=== PATIENT | male | born 1955 | race Hispanic/Latino ===

== ENCOUNTER 2019-02-02 13:12 | Inpatient (IN) | payer SELFPAY ==
[2019-02-02 13:43] LABS: #Basophils 0.1 thou/uL (0.0-0.2); #Eosinphils 0.5 thou/uL (0.0-0.7); #Lymphocytes 2.2 thou/uL (1.20-3.40); #Monocytes 0.6 thou/uL (0.11-0.59); #Neutrophils 5.3 thou/uL (1.40-6.50); %Basophils 1.1 % (0.0-1.0); %Eosinophils 5.8 % (0.0-10.0); %Lymphocytes 25.1 % (21.0-51.0); %Monocytes 6.8 % (0.0-10.0); %Neutrophils 61.1 % (42.0-75.0); Hemoglobin 17.1 g/dL (14.0-18.0); Mean Corpuscular HGB CONC 34.3 g/dL (32.0-36.0); Mean Corpuscular Hemoglobin 32.6 pg (27.0-31.0); Mean Platelet Volume 7.6 fL (7.4-10.4); Platelet Count 242 thou/uL (130-400); RBC Distribution Width 12.2 % (11.5-14.5); Red Blood Cell (RBC) Count 5.26 mill/uL (4.70-6.10); White Blood Cell (WBC) Count 8.6 thou/uL (4.8-10.8)
--- NOTE | 2019-02-02 13:47 | RAD ---
SINGLE VIEW OF THE CHEST: COMPARISON: None. HISTORY: Chest pain. FINDINGS: Single view of the chest shows a normal sized cardiomediastinal silhouette. There is no evidence of c onsolidation, mass, or pleural effusion. The bones are unremarkable. IMPRESSION: No evidence of acute cardiopulmonary disease. POS: CET
[2019-02-02 14:09] LABS: ALT (SGPT) 20 U/L (8-55); AST (SGOT) 20 U/L (5-34); Albumin 4.2 g/dL (3.4-4.8); Alkaline Phosphatase 81 U/L (40-110); Anion Gap 12 mmol/L (10-20); BUN (Urea Nitrogen) 15 mg/dL (8.4-25.7); Bilirubin, Total 0.7 mg/dL (0.2-1.2); Calc. Creatinine Clearance 0 mL/min (70-130); Calcium 8.8 mg/dL (7.8-10.44); Carbon Dioxide 21 mmol/L (23-31); Chloride 109 mmol/L (98-107); Estimated GFR-MDRD 87; Globulin 2.9 g/dL (2.4-3.5); Glucose 94 mg/dL (80-115); Lipase 19 U/L (8-78); Protein, Total 7.1 g/dL (5.8-8.1); Sodium 138 mmol/L (136-145)
[2019-02-02] MEDS ORDERED: Acetaminophen 325 MG TAB PO PRN (16:48)
[2019-02-02] MEDS ORDERED: Senokot S 8.6-50 MG TAB PO PRN (16:48)
[2019-02-02 16:52] LABS: Troponin I Less than 0.010 ng/mL (< 0.028)
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
[2019-02-02] MEDS: Famotidine 20 MG TAB PO SCH (20:01)
[2019-02-02 20:15] LABS: Troponin I Less than 0.010 ng/mL (< 0.028)
[2019-02-02] MEDS: Nitroglycerin 2% Ointment 1 INCH/1 GM Packet TOP SCH (22:04)
[2019-02-03 04:22] LABS: #Basophils 0.1 thou/uL (0.0-0.2); #Eosinphils 0.5 thou/uL (0.0-0.7); #Monocytes 0.6 thou/uL (0.11-0.59); #Neutrophils 4.7 thou/uL (1.40-6.50); %Basophils 1.5 % (0.0-1.0); %Eosinophils 6.3 % (0.0-10.0); %Lymphocytes 25.3 % (21.0-51.0); %Monocytes 7.4 % (0.0-10.0); %Neutrophils 59.5 % (42.0-75.0); Mean Corpuscular HGB CONC 33.5 g/dL (32.0-36.0); Mean Corpuscular Volume 95.5 fL (78.0-98.0); Mean Platelet Volume 7.8 fL (7.4-10.4); Platelet Count 221 thou/uL (130-400); RBC Distribution Width 12.1 % (11.5-14.5); White Blood Cell (WBC) Count 7.9 thou/uL (4.8-10.8)
[2019-02-03 04:39] LABS: Anion Gap 10 mmol/L (10-20); BUN (Urea Nitrogen) 17 mg/dL (8.4-25.7); Calc. Creatinine Clearance 96 mL/min (70-130); Calcium 8.8 mg/dL (7.8-10.44); Carbon Dioxide 23 mmol/L (23-31); Cardiac Risk 4.2 (Less than 4.5); Chloride 110 mmol/L (98-107); Cholesterol 139 mg/dl (< 200 Desired); Estimated GFR-MDRD 87; Glucose 109 mg/dL (80-115); HDL Cholesterol 33 mg/dL (>60 Neg Risk); LDL Cholesterol, Calculated 87 mg/dL; Potassium 3.9 mmol/L (3.5-5.1); Sodium 139 mmol/L (136-145); Triglycerides 96 mg/dL (Less than 150)
[2019-02-03] MEDS: Nitroglycerin 2% Ointment 1 INCH/1 GM Packet TOP SCH ×3 (06:33→20:56)
[2019-02-03] MEDS: Enoxaparin Sodium 40 MG/0.4 ML SYRINGE SC SCH (11:55)
[2019-02-03] MEDS: Famotidine 20 MG TAB PO SCH ×2 (11:55→19:46)
[2019-02-03] MEDS: Aspirin 325 mg Enteric Coated Tablet PO SCH (11:55)
--- NOTE | 2019-02-03 12:03 | NM ---
EXAM: NM Cardiac Stress W EF WF PROVIDED CLINICAL HISTORY: Chest pain. COMPARISON: None FINDINGS: This examination was performed as a pharmacologic myocardial stress test after the administration of 0.4 mg of Lexiscan IV. There is normal uptake of radiotracer within the left ventricular myocardium. No reversible defect is seen between the stress and resting acquisitions. Gated images show normal ventricular wall motion and wall thickening. Calculated left ventricular ejection fraction is 57%. IMPRESSION: 1. Normal myocardial perfusion study without evidence of a reversible defect seen to suggest ischemia . 2. Normal LVEF of 57%.
[2019-02-03] MEDS ORDERED: Regadenoson 0.4 MG/5 ML SYRINGE ONE (12:28)
--- NOTE | 2019-02-03 12:35 | PDOC.HOSPP ---
- Subjective Encounter Date: 02/03/19 Encounter Time: 12:33 Subjective: Mr. Talavera was seen today in follow-up. He says he feels better. He does not have chest pain today. 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 He would also get some dyspnea. He says this started a few weeks ago. - Objective Vital Signs & Weight: Vital Signs (12 hours) Temp Pulse Resp BP BP Pulse Ox 02/03/19 11:47 97.5 F L 77 17 115/71 97 02/03/19 09:00 67 16 124/74 98 02/03/19 07:33 97.9 F 65 18 118/63 98 02/03/19 03:31 97.4 F L 61 16 101/63 98 Weight Weight 171 lb 8 oz I&O: 02/02/19 02/03/19 02/04/19 06:59 06:59 06:59 Intake Total 600 Output Total 0 Balance 600 Result Diagrams: 02/03/19 04:06 02/03/19 04:06 Hospitalist ROS - Medication Medications: Active Medications Generic Name Dose Route Start Last Admin Trade Name Freq PRN Reason Stop Dose Admin Aspirin 325 mg 02/03/19 09:00 02/03/19 11:55 Ecotrin PO 325 mg DAILY BETSY Administration Enoxaparin Sodium 40 mg 02/03/19 09:00 02/03/19 11:55 Lovenox SC Not Given 0900 [facility] Famotidine 20 mg 02/02/19 21:00 02/03/19 11:55 Pepcid PO 20 mg BID BETSY Administration Nitroglycerin 0.5 inch 02/02/19 22:00 02/03/19 06:33 Nitro-Bid 2% Ointment TOP Not Given Q8HR BETSY - Exam Eye: PERRL Heart: RRR, no murmur, no gallops, no rubs, normal peripheral pulses Respiratory: CTAB, no wheezes, no rales, no ronchi, normal chest expansion, no tachypnea, normal percussion Gastrointestinal: soft, non-tender, non-distended, normal bowel sounds, no palpable masses, no hepatomegaly, no splenomegaly, no guarding, no rigidity Extremities: no cyanosis, no clubbing, no edema Skin: normal turgor, no lesions, no rashes Hosp A/P (1) Chest pain Code(s): R07.9 - CHEST PAIN, UNSPECIFIED Status: Acute (2) Tobacco abuse Code(s): Z72.0 - TOBACCO USE Status: Chronic - Plan * Chest pain- the patient's description is still concerning for possible angina , or CAD. * He did not reach his target heart rate during the stress test due to fatigue, and he has a baseline RBBB- will therefore consult Cardiology for further assessment. He is uninsured and does not have a Primary Care Provider, and I am concerned he will not be able to get a follow-up visit and see a X Ray Nurse in a reasonable timeframe.
[2019-02-04] MEDS: Nitroglycerin 2% Ointment 1 INCH/1 GM Packet TOP SCH ×3 (06:00→20:26)
[2019-02-04] MEDS ORDERED: Communication Order-Pharmacy FS SCH (07:30)
[2019-02-04] MEDS: Enoxaparin Sodium 40 MG/0.4 ML SYRINGE SC SCH (09:22)
[2019-02-04] MEDS: Famotidine 20 MG TAB PO SCH ×2 (09:22→20:25)
[2019-02-04] MEDS: Aspirin 325 mg Enteric Coated Tablet PO SCH (09:22)
--- NOTE | 2019-02-04 10:24 | PDOC.HOSPP ---
- Subjective Encounter Date: 02/04/19 Encounter Time: 10:23 Subjective: Mr. Talavera was seen today in follow-up of chest pain. He does not have any complaints. He denies chest pain this morning. - Objective Vital Signs & Weight: Vital Signs (12 hours) Temp Pulse Resp BP Pulse Ox 02/04/19 07:48 97.3 F L 67 20 115/75 100 02/04/19 04:44 97.4 F L 61 16 104/65 97 Weight Weight 171 lb 8 oz I&O: 02/03/19 02/04/19 02/05/19 06:59 06:59 06:59 Intake Total 600 1080 Output Total 0 Balance 600 1080 Result Diagrams: 02/03/19 04:06 02/03/19 04:06 Hospitalist ROS - Medication Medications: Active Medications Generic Name Dose Route Start Last Admin Trade Name Freq PRN Reason Stop Dose Admin Aspirin 325 mg 02/03/19 09:00 02/04/19 09:22 Ecotrin PO 325 mg DAILY BETSY Administration Enoxaparin Sodium 40 mg 02/03/19 09:00 02/04/19 09:22 Lovenox SC 02/04/19 21:00 40 mg 0900 BETSY Administration Famotidine 20 mg 02/02/19 21:00 02/04/19 09:22 Pepcid PO 20 mg BID BETSY Administration Nitroglycerin 0.5 inch 02/02/19 22:00 02/04/19 06:00 Nitro-Bid 2% Ointment TOP Not Given Q8HR BETSY - Exam Eye: PERRL, anicteric sclera Heart: RRR, no murmur, no gallops, no rubs, normal peripheral pulses Respiratory: CTAB, no wheezes, no rales, no ronchi, normal chest expansion, no tachypnea, normal percussion Gastrointestinal: soft, non-tender, non-distended, normal bowel sounds, no palpable masses, no hepatomegaly, no splenomegaly, no bruit, no guarding, no rigidity Extremities: no cyanosis, no clubbing, no edema Psychiatric: normal affect, normal behavior, A&O x 3 Hosp A/P (1) Chest pain Code(s): R07.9 - CHEST PAIN, UNSPECIFIED Status: Acute (2) Tobacco abuse Code(s): Z72.0 - TOBACCO USE Status: Chronic - Plan * Chest pain- with concern for coronary artery disease- await Cath in AM * Tobacco abuse- again discussed the need to quit, and some strategies to aid in this process
--- NOTE | 2019-02-04 13:39 | PDOC.CPN ---
- Subjective Date: 02/04/19 Time: 13:35 Interval history: No complaints. No CP/BUCHANAN - Review of Systems General: denies: fever/chills, weight/appetite/sleep changes, night sweats, fatigue Respiratory: denies: cough, congestion, shortness of breath, exercise intolerance Cardiovascular: denies: chest pain, palpitation, edema, paroxysmal nocturnal dyspnea, orthopnea Gastrointestinal: denies: nausea, vomiting, diarrhea, constipation, abd pain, GI bleeding Musculoskeletal: denies: pain, tenderness, stiffness, swelling, arthritis/ arthralgias Neurological: denies: numbness, syncope, seizure, weakness - Objective Allergies/Adverse Reactions: Allergies Allergy/AdvReac Type Severity Reaction Status Date / Time No Known Allergies Allergy Verified 02/02/19 17:39 Visit Medications: Current Medications Acetaminophen (Tylenol) 650 mg PO Q4H PRN PRN Reason: Headache/Fever/Mild Pain (1-3) Aspirin (Ecotrin) 325 mg PO DAILY [facility] Last Admin: 02/04/19 09:22 Dose: 325 mg Enoxaparin Sodium (Lovenox) 40 mg SC 0900 [facility] Stop: 02/04/19 21:00 Last Admin: 02/04/19 09:22 Dose: 40 mg Famotidine (Pepcid) 20 mg PO BID [facility] Last Admin: 02/04/19 09:22 Dose: 20 mg Sodium Chloride (Normal Saline 0.9%) 1,000 mls @ 100 mls/hr IV .Q10H [facility] Miscellaneous Information (Communication Order-Pharmacy) 0 each FS ONE [facility] Stop: 02/04/19 23:59 Nitroglycerin (Nitro-Bid 2% Ointment) 0.5 inch TOP Q8HR [facility] Last Admin: 02/04/19 06:00 Dose: Not Given Senna/Docusate Sodium (Senokot S) 2 tab PO BID PRN PRN Reason: Constipation Sodium Chloride (Flush - Normal Saline) 10 ml IVF PRN PRN PRN Reason: Saline Flush Vital Signs & Weight: Vital Signs Temp Pulse Resp BP Pulse Ox 02/04/19 11:42 97.8 F 72 20 104/65 98 02/04/19 07:48 97.3 F L 67 20 115/75 100 02/04/19 04:44 97.4 F L 61 16 104/65 97 Weight 171 lb 8 oz - Physical Exam General: alert & oriented x3 HEENT: mucus membranes moist Neck: supple neck Cardiac: regular rate and rhythm Lungs: clear to auscultation Neuro: grossly intact Abdomen: unremarkable Extremities: no edema Skin: clear - Labs Result Diagrams: 02/03/19 04:06 02/03/19 04:06 Troponin/CKMB Troponin I Less than 0.010 ng/mL (< 0.028) 02/02/19 19:41 - Telemetry Sinus rhythms and dysrhythmias: sinus rhythm - Assessment/Plan Assessment/Plan: 1. CP/?UA Plan for [facility] tomorrow. No changes today.
[2019-02-04] MEDS: Sodium Chloride 0.9% 1,000 ML IV SCH (17:09)
[2019-02-05] MEDS: Sodium Chloride 0.9% 1,000 ML IV SCH ×2 (04:03→13:59)
[2019-02-05] MEDS: Nitroglycerin 2% Ointment 1 INCH/1 GM Packet TOP SCH ×3 (06:06→21:22)
[2019-02-05] MEDS: Famotidine 20 MG TAB PO SCH ×2 (06:12→21:22)
[2019-02-05] MEDS: Aspirin 325 mg Enteric Coated Tablet PO SCH (06:12)
--- NOTE | 2019-02-05 07:16 | CON ---
DATE OF CONSULTATION: REASON FOR CONSULTATION: Chest pain. PRIMARY HEALTH AIDE: None. HISTORY OF PRESENT ILLNESS: Mr. Talavera is a 63-year-old gentleman with previous history of tobacco abuse, who states he began having pain 2 weeks ago. It was acute in onset. It occurred while doing moderate exertion. He states he normally is able to work without any issues. He then states he awoke with same type of discomfort yesterday. He proceeded to the emergency room. His CKs and troponins have been negative. He had a recent stress study performed that was negative for ischemia. The patient was only able to achieve 70% predicted heart rate. PAST MEDICAL HISTORY: None. PAST SURGICAL HISTORY: Cholecystectomy, nephrectomy, back surgery. SOCIAL HISTORY: No current alcohol use. He does smoke 1 pack per day. ALLERGIES: NONE. REVIEW OF SYSTEMS: A 10-point review of systems is reviewed as above, otherwise negative. PHYSICAL EXAMINATION: VITAL SIGNS: Blood pressure 115/71, pulse 77, temperature 97.5. GENERAL: Patient is a pleasant male who is in no acute distress. The patient appears their stated age. NEUROLOGIC: The patient is alert and oriented x3 with no focal neurologic deficits. HEENT: Sclerae without icterus. Mouth has moist mucous membranes with normal pallor. NECK: No JVD. Carotid upstroke brisk. No bruits bilaterally. LUNGS: Clear to auscultation with unlabored respirations. BACK: No scoliosis or kyphosis. CARDIAC: Regular rate and rhythm with normal S1 and S2. No S3 or S4 noted. No significant rubs, murmurs, thrills, or gallops noted throughout the precordium. PMI is not displaced. There is no parasternal heave. ABDOMEN: Soft, nontender, nondistended. No peritoneal signs present. No hepatosplenomegaly. No abnormal striae. EXTREMITIES: 2+ femoral and 2+ dorsalis pedis pulses. No cyanosis, clubbing, or edema. SKIN: No gross abnormalities. PERTINENT LABORATORY DATA: Hemoglobin 16, hematocrit 47.7. Creatinine 0.89. IMPRESSION: 1. Angina. 2. Normal stress test. 3. Tobacco abuse. RECOMMENDATIONS: Mr. Talavera' symptoms are strongly suggestive of angina. He was not able to achieve target heart rate. Based on his history, I discussed procedure of coronary angiography and possible PCI. I discussed procedure in full detail with Mr. Talavera. Risks included, but not limited to the following: , stroke, PR, need for emergency surgery, loss of limb, bleeding, and infection, as well as a reaction to the dye causing kidney failure and needing long-term dialysis. I also discussed the risks of PCI to include all of the above including coronary dissection and perforation in addition to acute stent thrombosis and restenosis. All questions about the procedure were answered. Given the above, the patient agreed to proceed with coronary angiography and possible PCI. All questions answered. Given the above, the patient agreed to proceed with above procedure. I also discussed drug-coated versus nondrug-coated stent placement. He would like to proceed with drug-coated stent placement if needed. He understands the need to take Plavix for at least 6 months without missing a dose . Job ID: [id number]
[2019-02-05] MEDS ORDERED: Lidocaine 1% (PF) 30 ML VIAL ONE (09:03)
[2019-02-05] MEDS ORDERED: Nitroglycerin 100MG/250ML BOT 0 ML ONE (09:25)
[2019-02-05] MEDS ORDERED: Verapamil 5 MG/2 ML VIAL ONE (09:25)
[2019-02-05] MEDS ORDERED: Heparin 10,000 UNITS/1 ML VIAL ONE (09:25)
[2019-02-05] MEDS ORDERED: Acetaminophen/Codeine 30-300mg Tablet PO PRN ×2 (10:12)
[2019-02-05] MEDS ORDERED: Sodium Chloride 0.9% 200 ML IV PRN (10:12)
[2019-02-05] MEDS ORDERED: Nitroglycerin 0.4 MG TAB (25 Tab Bottle) SL PRN (10:12)
[2019-02-05] MEDS ORDERED: Sodium Chloride 0.9% 1,000 ML IV SCH (10:15)
[2019-02-05] MEDS ORDERED: Iopamidol 370 76% 100 ML VIAL ONE (14:02)
[2019-02-05] MEDS ORDERED: Communication Order-Pharmacy FS SCH (14:20)
--- NOTE | 2019-02-05 15:18 | PDOC.HOSPP ---
- Subjective Encounter Date: 02/05/19 Encounter Time: 12:15 Subjective: Mr. Talavera was seen today in follow-up of chest pain. He is back from cardiac cath. He does not have any complaints. - Objective Vital Signs & Weight: Vital Signs (12 hours) Temp Pulse Resp BP Pulse Ox 02/05/19 11:43 98.2 F 68 16 122/78 98 02/05/19 07:59 98 F 65 16 99/57 L 98 02/05/19 03:33 97.4 F L 57 L 16 112/63 98 Weight Weight 174 lb 14.4 oz I&O: 02/04/19 02/05/19 02/06/19 06:59 06:59 06:59 Intake Total 5922 0776 Balance 8967 2815 Result Diagrams: 02/03/19 04:06 02/03/19 04:06 Hospitalist ROS - Medication Medications: Active Medications Generic Name Dose Route Start Last Admin Trade Name Freq PRN Reason Stop Dose Admin Aspirin 325 mg 02/03/19 09:00 02/05/19 06:12 Ecotrin PO 325 mg DAILY BETSY Administration Famotidine 20 mg 02/02/19 21:00 02/05/19 06:12 Pepcid PO 20 mg BID BETSY Administration Sodium Chloride 1,000 mls @ 100 mls/hr 02/04/19 07:30 02/05/19 13:59 Normal Saline 0.9% IV Not Given .Q10H BETSY Nitroglycerin 0.5 inch 02/02/19 22:00 02/05/19 14:51 Nitro-Bid 2% Ointment TOP Not Given Q8HR BETSY - Exam Eye: PERRL, anicteric sclera Heart: RRR, no murmur, no gallops, no rubs, normal peripheral pulses Respiratory: CTAB, no wheezes, no rales, no ronchi, normal chest expansion, no tachypnea, normal percussion Gastrointestinal: soft, non-tender, non-distended, normal bowel sounds, no palpable masses, no hepatomegaly, no splenomegaly Extremities: no cyanosis, no clubbing, no edema Hosp A/P (1) Chest pain Code(s): R07.9 - CHEST PAIN, UNSPECIFIED Status: Acute (2) Tobacco abuse Code(s): Z72.0 - TOBACCO USE Status: Chronic - Plan * Chest pain- this likely represents unstable angina- awaiting final cath report , but I am told there was evidence of multi-vessel disease * Plan is for CV- surgery evaluation
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
[2019-02-05] MEDS ORDERED: Docusate 100 MG CAP PO SCH (21:00)
[2019-02-06] MEDS: Sodium Chloride 0.9% 1,000 ML IV SCH ×2 (00:36→15:43)
[2019-02-06] MEDS: Nitroglycerin 2% Ointment 1 INCH/1 GM Packet TOP SCH (05:02)
--- NOTE | 2019-02-06 05:31 | STRESS ---
Acquisition Time: 2019-02-03 10:27:36 Total Exercise Time: 00:15:08 Test Indications: CHEST PAIN Medications: Protocol: EMETERIO Max HR: 129 BPM 81% of Pred: 159 BPM Max BP: 146/066 mmHG Max Work Load: 10.1 METS RESTING ECG: NORMAL SINUS RHYTM WITH COMPLETE RBBB AT 66 BPM SYMPTOMS: BUCHANAN NORMAL BP RESPONSE ECTOPY: NONE ECG STRESS: UNABLE TOR EACH TARGET HEART RATE DUE TO FATIGUE. CHANGED TO KATEY-WALK AT 8:43 INTERPRETATION: INTERMINATE ECG / AWAIT NUCLEAR IMAGES FOR DEFINITIVE DIAGNOSIS Confirmed by SANJANA MINER ELLEN ([id number]) on 02/06/2019 5:30:45 AM Referred By: DELVIN MAYBERRY Confirmed By:ASHLYN MINER PA-C
--- NOTE | 2019-02-06 06:07 | PDOC.CPN ---
- Objective Allergies/Adverse Reactions: Allergies Allergy/AdvReac Type Severity Reaction Status Date / Time No Known Allergies Allergy Verified 02/02/19 17:39 Visit Medications: Current Medications Acetaminophen (Tylenol) 650 mg PO Q4H PRN PRN Reason: Headache/Fever/Mild Pain (1-3) Stop: 02/06/19 08:59 Acetaminophen/Codeine Phosphate (Tylenol #3) 1 tab PO Q4H PRN PRN Reason: Mild Pain (1-3) Stop: 02/06/19 08:59 Acetaminophen/Codeine Phosphate (Tylenol #3) 2 tab PO Q4H PRN PRN Reason: Moderate Pain (4-6) Stop: 02/06/19 08:59 Aspirin (Ecotrin) 325 mg PO DAILY [facility] Stop: 02/06/19 08:59 Last Admin: 02/05/19 06:12 Dose: 325 mg Cefazolin Sodium/Dextrose (Ancef) 2 gm IVPB 0715 [facility] Stop: 02/06/19 12:00 Docusate Sodium (Colace) 100 mg PO BID [facility] Stop: 02/06/19 08:59 Last Admin: 02/05/19 21:22 Dose: Not Given Famotidine (Pepcid) 20 mg PO BID [facility] Stop: 02/06/19 08:59 Last Admin: 02/05/19 21:22 Dose: 20 mg Miscellaneous Information (Communication Order-Pharmacy) 1 each FS ONE [facility] Stop: 02/06/19 08:59 Nitroglycerin (Nitro-Bid 2% Ointment) 0.5 inch TOP Q8HR BETSY Stop: 02/06/19 08:59 Last Admin: 02/06/19 05:02 Dose: Not Given Nitroglycerin (Nitrostat) 0.4 mg SL Q5MIN PRN PRN Reason: Chest Pain Stop: 02/06/19 08:59 Senna/Docusate Sodium (Senokot S) 2 tab PO BID PRN PRN Reason: Constipation Stop: 02/06/19 08:59 Sodium Chloride (Flush - Normal Saline) 10 ml IVF PRN PRN PRN Reason: Saline Flush Last Admin: 02/05/19 21:23 Dose: 10 ml Vital Signs & Weight: Vital Signs Temp Pulse Resp BP BP Pulse Ox 02/06/19 04:46 98.3 F 67 17 110/64 96 02/05/19 19:10 98 F 69 17 136/74 97 Weight 173 lb 11.2 oz - Labs Result Diagrams: 02/03/19 04:06 02/03/19 04:06 Troponin/CKMB Troponin I Less than 0.010 ng/mL (< 0.028) 02/02/19 19:41 - Assessment/Plan Assessment/Plan: Severe CAD Tobacco abuse
[2019-02-06] MEDS ORDERED: Albumin 5% 500 ML ONE (06:36)
[2019-02-06] MEDS ORDERED: Midazolam HCl 5 mg/5 ml Vial ONE (06:47)
[2019-02-06] MEDS ORDERED: Fentanyl 250 MCG/5 ML VIAL ONE (06:47)
[2019-02-06] MEDS ORDERED: Dexmedetomidine 200 MCG/2 ML VIAL ONE (06:48)
[2019-02-06] MEDS ORDERED: Vecuronium 10 MG VIAL ONE ×2 (06:48→11:49)
[2019-02-06] MEDS ORDERED: Heparin 10,000 UNITS/1 ML VIAL 30,000 UNITS in Sodium Chloride 0.9% 1,000 ML FS SCH (07:00)
[2019-02-06] MEDS ORDERED: Midazolam HCl 2 mg/2 ml Vial ONE (07:07)
[2019-02-06] MEDS ORDERED: Papaverine 60 MG/2 ML VIAL ONE ×2 (09:56→11:49)
[2019-02-06] MEDS ORDERED: Protamine Sulfate 250 MG/25 ML VIAL ONE (11:49)
[2019-02-06] MEDS ORDERED: Sodium Bicarb 50 MEQ/50 ML VIAL ONE (11:49)
[2019-02-06] MEDS ORDERED: Calcium Chloride 1 GM/10 ML Abboject SYRINGE ONE (11:49)
[2019-02-06] MEDS ORDERED: Magnesium 5 GM/10 ML VIAL ONE (11:49)
[2019-02-06] MEDS ORDERED: Potassium Chloride 60 MEQ/30 ML VIAL ONE (11:49)
[2019-02-06] MEDS ORDERED: Thrombin 5000 UNITS/5 ML VIAL ONE (11:49)
[2019-02-06] MEDS ORDERED: Heparin 5,000 UNITS/ML VIAL ONE (11:49)
[2019-02-06] MEDS ORDERED: Cardioplegic Soln 1,000 ML BAG ONE (11:49)
[2019-02-06] MEDS ORDERED: Aminocaproic Acid 5 GM/20 ML VIAL ONE (11:49)
[2019-02-06] MEDS ORDERED: Heparin 30,000 units/30 ml VIAL ONE (11:49)
[2019-02-06] MEDS ORDERED: Mannitol 12.5 GM/50 ML ONE (11:49)
[2019-02-06] MEDS ORDERED: PROPOFOL 200 MG/20 ML VIAL ONE (11:49)
[2019-02-06] MEDS ORDERED: Norepinephrine 4 MG/4 ML VIAL ONE (11:49)
[2019-02-06] MEDS ORDERED: Lidocaine 2% PF 100 mg/5 ml Syringe ONE (11:49)
[2019-02-06] MEDS ORDERED: Insulin Regular 300 UNITS/3 ML VIAL ONE (12:22)
[2019-02-06] MEDS ORDERED: PHENYLEPHRINE-NS 100 MCG/ML 10 ML SYRINGE ONE (12:58)
[2019-02-06] MEDS ORDERED: niCARdipine 25 MG in Sodium Chloride 0.9% 250 ML 240 ML IVPB PRN (14:32)
[2019-02-06] MEDS ORDERED: Mag-Al 1200 mg/1200 mg/30 ML UDCUP PO PRN (14:32)
[2019-02-06] MEDS ORDERED: Potassium Chloride 20 MEQ/100 ML PREMIX BAG IVPB PRN (14:32)
[2019-02-06] MEDS ORDERED: Ondansetron PF 4 MG/2 ML Vial IVP PRN (14:32)
[2019-02-06] MEDS ORDERED: Bisacodyl 10 MG SUPP PR PRN (14:32)
[2019-02-06] MEDS ORDERED: Fentanyl 100 MCG/2 ML VIAL SLOW IVP PRN (14:32)
[2019-02-06] MEDS ORDERED: hydrALAZINE 20 MG/ML VIAL SLOW IVP PRN (14:32)
[2019-02-06] MEDS ORDERED: Hetastarch 6% 500 ML 500 ML IVPB PRN (14:32)
[2019-02-06] MEDS ORDERED: Norepinephrine 8 MG/0.9% NS 250 ML IVPB PRN (14:32)
[2019-02-06] MEDS ORDERED: Post-Op Insulin Drip Protocol IVPB ONE (14:32)
[2019-02-06] MEDS ORDERED: Nitroglycerin 50 MG/250 ML BOT 250 ML IVPB PRN (14:32)
[2019-02-06] MEDS ORDERED: Guaifenesin DM 100-10/5 ML UDCUP PO PRN (14:32)
[2019-02-06] MEDS ORDERED: Promethazine HCl 25 MG/ML VIAL IM PRN (14:32)
[2019-02-06] MEDS ORDERED: Bisacodyl 5 MG TAB PO PRN (14:32)
[2019-02-06] MEDS ORDERED: Acetaminophen 325 MG TAB PO PRN (14:32)
[2019-02-06] MEDS ORDERED: Morphine 4 MG/ML VIAL ONE (14:40)
[2019-02-06] MEDS ORDERED: Famotidine/PF 20 mg/2ml Vial SLOW IVP SCH ×2 (14:45→21:00)
[2019-02-06] MEDS ORDERED: HUMULIN R 100 UNITS in Sodium Chloride 0.9% 100 ML IVPB SCH (14:47)
[2019-02-06] MEDS ORDERED: Dextrose 5% in Water 1,000 ML IV PRN (14:47)
[2019-02-06] MEDS ORDERED: Dextrose 50% Abboject 50 ML SYRINGE SLOW IVP PRN (14:47)
[2019-02-06 14:52] LABS: Actual Bicarbonate (HCO3a) 19.8 mEq/L (22-28); CO2 Tension 40.2 mmHg (35.0-45.0); Calcium, Ionized 1.17 mmol/L (1.12-1.30); Carboxyhemoglobin (COHb) 1.2 gm% (0.0-3.0); Hemoglobin (Hb) 13.3 g/dL (14.0-18.0); O2 Tension (PaO2) 73.8 mmHg (> 80.0); Potassium - ABG Lab 3.88 mmol/L (3.70-5.30); Puncture Site ALINE; pH, Arterial 7.31 (7.35-7.45)
[2019-02-06 14:59] LABS: Hemoglobin 13.1 g/dL (14.0-18.0); Mean Corpuscular HGB CONC 33.9 g/dL (32.0-36.0); Mean Corpuscular Hemoglobin 32.6 pg (27.0-31.0); Mean Corpuscular Volume 96.1 fL (78.0-98.0); Mean Platelet Volume 7.9 fL (7.4-10.4); Platelet Count 170 thou/uL (130-400); Red Blood Cell (RBC) Count 4.02 mill/uL (4.70-6.10); White Blood Cell (WBC) Count 22.3 thou/uL (4.8-10.8)
[2019-02-06] MEDS ORDERED: Aspirin 325 MG TAB PO SCH (15:00)
[2019-02-06] MEDS: Fentanyl 100 MCG/2 ML VIAL SLOW IVP PRN ×4 (15:00→23:53)
[2019-02-06 15:04] LABS: INR-International Normal Ratio 1.4; Prothrombin Time 16.8 SEC (12.0-14.7)
[2019-02-06] MEDS ORDERED: Norepinephrine 8 MG in Dextrose 5% in Water 242 ML IVPB PRN (15:06)
[2019-02-06 15:14] LABS: Band 17 % (5-11); Lymphocytes 8 % (21-51); MDiff Complete? YES; Metamyelocyte 1 % (0-0); Monocytes 3 % (0-10); Neutrophil 69 % (42-75); Platelet Morphology Comment Appears Adequate; RBC Morphology Normal
[2019-02-06 15:23] LABS: Anion Gap 10 mmol/L (10-20); BUN (Urea Nitrogen) 10 mg/dL (8.4-25.7); Calc. Creatinine Clearance 97 mL/min (70-130); Calcium 7.7 mg/dL (7.8-10.44); Carbon Dioxide 22 mmol/L (23-31); Chloride 115 mmol/L (98-107); Estimated GFR-MDRD 87; Glucose 145 mg/dL (80-115); Potassium 3.9 mmol/L (3.5-5.1); Sodium 143 mmol/L (136-145)
--- NOTE | 2019-02-06 15:33 | RAD ---
PORTABLE CHEST: HISTORY: Postop open heart surgery. COMPARISON: 02/02/2019 FINDINGS: Postop sternotomy changes are now noted. Chest tubes are now seen to overly the heart. A left subclav sahara line is present. Catheter tip is over the superior vena cava. The lungs are clear of infiltrates. No signs of pneumothorax. IMPRESSION: Postoperative sternotomy change. POS: OFF
[2019-02-06] MEDS: Insulin Regular 300 UNITS/3 ML VIAL SC PRN ×3 (15:38→23:54)
--- NOTE | 2019-02-06 15:49 | OP ---
DATE OF PROCEDURE: 02/06/2019 PROCEDURES PERFORMED: Coronary artery bypass grafting x4 with left internal mammary artery to the distal LAD, reverse greater saphenous vein graft from the aorta to the circumflex PDA, sequential right radial artery from the aorta to the first OM to the second OM. PREOPERATIVE DIAGNOSIS: Coronary artery disease with unstable angina. POSTOPERATIVE DIAGNOSIS: Coronary artery disease with unstable angina. DEVIL DOG: Yaw Uribe MD ANESTHESIA: General endotracheal anesthesia. INDICATIONS FOR PROCEDURE: The patient is a 63-year-old smoker with no other significant past medical history. For about a month, he has been having some dyspnea on exertion and chest discomfort that has been increasing in frequency and severity. He recently awoke from sleep with marked shortness of breath and chest pain, which improved, but his chest pain did not completely resolve and he went to the emergency room. He ruled out for myocardial infarction by enzymes, but cardiac catheterization demonstrated 3-vessel coronary artery disease including a high-grade lesion in the ostium of his LAD. He had preserved left ventricular systolic function. He is now taken to the operating room for revascularization. FINDINGS: Pump time 99 minutes. Cross-clamp time 52 minutes. Good quality left MARLENI, large. Good quality radial artery with good backflow bleeding while still attached distally. Good quality saphenous vein. All the coronaries grafted were good quality. The LAD was about a 1.5 to 2 mm vessel. The OM1 was about 2.5 mm. The OM2 about 2 mm. The circumflex PDA about 1.5 mm. NARRATIVE REPORT: After informed consent was obtained, the patient was taken to the operating room, placed in the supine position on the operating table. After the induction of general anesthesia, hand perfusion on the right side (his nondominant hand) was again assessed at this time using the pulse oximeter with the probe on his index finger. The pulse ox waveform flattened with compression of both radial and ulnar arteries and resumed pulsatility with release of the ulnar artery. It flattened again with compression of the radial artery. The patient was placed in Trendelenburg. His left upper chest was prepped and draped in sterile fashion and a triple lumen central line kit was used to place a left subclavian central line by the Seldinger technique. All 3 ports easily aspirated and flushed. The line was secured. The patient's right greater saphenous vein was ultrasonographically marked and mapped. The patient's torso, groins, and lower extremities were then prepped and draped in sterile fashion. The radial artery was exposed at the wrist and isolated. Doppler examination of the hand showed with the radial artery occluded at the wrist, there was some diminution of the strength of signal in the digital vessels and in the palmar arch, but they were still present. The radial artery was then harvested as a skeletonized graft from the wrist to its origin from the brachial artery. Side branches were controlled with small hemoclips. The radial artery was doubly ligated and divided at its origin. There was good back flow bleeding from the radial artery, which was then doubly ligated and divided distally. It was large enough and good enough quality vessel that it was feasible to cannulate the distal end with a standard size olive-tipped needle, through which papaverine solution was injected to dilate the vessel, relieve spasm, and assess for adequacy of control of side branches. The forearm incision was closed in layers of subcutaneous and subcuticular Vicryl. Dermabond and dressings were applied. The wound was wrapped and the arm was tucked. Saphenous vein was harvested from groin to mid distal thigh using a skin bridge technique. It was prepared for use as a graft and the harvest sites were closed in layers of subcutaneous and subcuticular Vicryl. A median sternotomy was performed. The left MARLENI was harvested as a skeletonized in-situ graft from the level of the xiphoid to near its origin from the subclavian artery. Side branches were controlled with small hemoclips. The patient was heparinized. The mammary was ligated and divided distally using two hemoclips on each of the branches of the bifurcation. There was good flow through the mammary, which was dilated and instilled intraluminally with papaverine solution. The mammary bed was inspected for hemostasis. The MARLENI retractor was placed with a Palacios retractor. The medial reflections of the pleura at the apex down to the level of the right ventricular outflow tract were mobilized. The pericardium was opened and marsupialized. The aorta was palpated and was soft. The patient had a relatively low pericardial reflection. It was taken down and a double concentric pursestring was placed in the ascending aorta just beyond the pericardial reflection. A single pursestring was placed in the right atrial appendage. The aortic and venous cannulae were inserted and secured by the pursestrings. The plane between the aorta and the pulmonary artery was developed. Cardiopulmonary bypass was instituted and the patient was systemically cooled. The heart was examined. The vessels to be bypassed were identified. A longitudinal slit was made in the pericardium anterior to the left phrenic nerve, through which the mammary could be passed. An aortic cross-clamp was applied and cardioplegia was administered through an aortic root needle. When arrest had been achieved, attention was turned to the circumflex PDA. It was exposed and opened near where it emerged on the epicardial surface beyond the fat pad at the AV groove. Saphenous vein was reversed and anastomosed to it end-to-side with running 6-0 Prolene suture and the anastomosis tested by flushing cold cardioplegia down the graft. Attention was then turned to the obtuse marginals. The second OM was opened in its mid portion and proximal end of the radial artery was anastomosed there end-to-side with running 7-0 Prolene suture and tested. The OM1 was then opened proximally and a corresponding longitudinal arteriotomy was made in the radial artery graft. A doqu-db-eowk anastomosis was then constructed from the radial artery to the OM1 and tested. The distal LAD was then opened and the mammary was anastomosed to it with running 7-0 Prolene and tacked to the epicardium. The aortic cross-clamp was replaced with a partial occluding clamp. An aortotomy was made in the ascending aorta with a scalpel and punch incorporating the root needle site. The circumflex PDA graft was brought along the right side of the heart and anastomosed to that rather generous aortotomy. A longitudinal venotomy was made in the carcamo of the vein graft proximal anastomosis and the radial artery graft was trimmed to length, spatulated, and anastomosed there end-to-side. The radial artery was allowed to back bleed and was then occluded at its anastomosis to the carcamo of the vein graft and partial occluding clamp was removed. The vein graft was de-aired and the bulldog removed from it. The anastomoses were inspected for hemostasis. Attempts had been made to close a small rent in the pleura. On the left side, there was still bulging in the pleura and an attempt was made to decompress that, but that was still bulging, so a small incision was made in the pleura to decompress it. The patient was weaned from cardiopulmonary bypass. The aortic and venous cannulae were removed and the purse-string secured. Protamine was administered. When hemostasis was adequate, an anterior mediastinal drain was placed and the pericardium was closed around it so that a portion of the anterior tube passed through the pericardium and a portion lay free in the anterior mediastinum. Vancomycin paste and platelet rich GPS were applied to the cut surfaces of the sternum. The sternum was then reapproximated with #7 stainless steel wires. The fascia was closed over the wires. The soft tissues were irrigated and treated with platelet poor GPS. The fascia was closed over the wires with running #1 Vicryl. The subcutaneous tissue was reapproximated with running 2-0 Vicryl and the skin was closed with 3-0 Vicryl subcuticular suture. The wounds were dressed and the patient was taken to the intensive care unit in stable condition. Job ID: [id number]
[2019-02-06] MEDS: Morphine 2 MG/ML SYRINGE SLOW IVP PRN ×2 (16:31→18:28)
--- NOTE | 2019-02-06 17:07 | CON ---
DATE OF CONSULTATION: HISTORY OF PRESENT ILLNESS: Theodore Talavera is a 63-year-old gentleman status post CABG. He is postop in the ICU, extubated, ICU consult. No difficulty breathing. He apparently came here on February 02 with dyspnea and chest pain, brought to the hospital over here. Cardiac cath revealed three-vessel disease. PAST MEDICAL HISTORY: Pertinent otherwise for arthritis, previous back surgery, and smokes a pack a day at least 40 years. Past medical history otherwise unremarkable for diabetes. ALLERGIES: NONE. CHRONIC MEDICATIONS: None. PAST SURGICAL HISTORY: Including nephrectomy, L4-L5 back surgery, and cholecystectomy. SOCIAL HISTORY: No substance abuse. REVIEW OF SYSTEMS: Review of system was postop unremarkable. PHYSICAL EXAMINATION: VITAL SIGNS: Temperature 97, pulse 98, blood pressure 100/75, respirations 18. CHEST: No wheezing or crackles. CARDIAC: Normal S1 and S2. No gallops. ABDOMEN: No masses. LABORATORY DATA: A pO2 of 73, pCO2 of 40, pH of 7.31, on 3 L. Lytes are normal. Chest x-ray post CABG shows no acute infiltrates. White count 22,000, slightly elevated. IMPRESSION AND PLAN: Status post coronary artery bypass grafting, tobacco abuse, previous back surgery, and previous nephrectomy. Recheck CBC in the morning. Otherwise, continue supportive care. Appears to be in no acute distress. Pulmonary will follow while in the ICU. Consultation note, 70 minutes, 50% direct patient care. Job ID: [id number]
--- NOTE | 2019-02-06 17:44 | PDOC.HOSPP ---
- Subjective Encounter Date: 02/06/19 Encounter Time: 15:30 Subjective: Mr. Talavera was seen today in follow-up of unstable angina. He is post CABG. He is extubated. - Objective Vital Signs & Weight: Vital Signs (12 hours) Temp Pulse Ox 02/06/19 17:32 97.6 F 98 02/06/19 16:54 97.6 F 98 02/06/19 16:00 97.6 F 98 02/06/19 15:13 98 Weight Weight 173 lb 11.2 oz Most Recent Monitor Data Heart Rate from ECG 83 NIBP 103/73 NIBP BP-Mean 83 Respiration from ECG 21 SpO2 99 I&O: 02/05/19 02/06/19 02/07/19 06:59 06:59 06:59 Intake Total 2577 1580 705 Output Total 220 Balance 2577 1580 485 Result Diagrams: 02/06/19 14:47 02/06/19 14:47 Additional Labs: Accuchecks 02/06/19 02/06/19 02/06/19 14:52 12:50 12:18 POC Glucose 142 H 153 H 176 H 02/06/19 11:42 POC Glucose 158 H Hospitalist ROS - Medication Medications: Active Medications Generic Name Dose Route Start Last Admin Trade Name Freq PRN Reason Stop Dose Admin Albumin Human 25 gm 02/06/19 14:32 02/06/19 15:48 Albumin 5% IVPB 02/07/19 14:33 25 gm Q6H PRN Administration To Maintain SBP > 90 mmHG Fentanyl 50 mcg 02/06/19 14:32 02/06/19 15:52 Sublimaze SLOW IVP 02/08/19 07:42 50 mcg Q2H PRN Administration Severe Pain (7-10) Sodium Chloride 1,000 mls @ 75 mls/hr 02/06/19 14:32 02/06/19 15:43 Normal Saline 0.9% IV 1,000 mls .[id number] BETSY Administration Insulin Human Regular 0 units 02/06/19 14:47 02/06/19 15:38 Humulin R SC 3 unit/kg Q4H PRN Administration POST OP SLIDING SCALE Protocol Morphine Sulfate 2 mg 02/06/19 14:32 02/06/19 16:31 Morphine SLOW IVP 2 mg Q15MIN PRN Administration Severe Pain (7-10) Potassium Chloride 20 meq 10/08/19 14:32 02/06/19 16:41 Kcl IVPB 20 meq PRN PRN Administration K level </= 4.0 - Exam Eye: PERRL, anicteric sclera Heart: RRR, no murmur, no gallops, no rubs, normal peripheral pulses Respiratory: CTAB, no wheezes, no rales, normal chest expansion, no tachypnea, normal percussion, rhonchi (occasional rhonchi, and decreased breath sounds at the bases) Gastrointestinal: soft, non-tender, non-distended, normal bowel sounds, no palpable masses, no hepatomegaly, no splenomegaly Extremities: no cyanosis, no clubbing, no edema Hosp A/P (1) Chest pain Code(s): R07.9 - CHEST PAIN, UNSPECIFIED Status: Acute (2) Tobacco abuse Code(s): Z72.0 - TOBACCO USE Status: Chronic (3) S/P CABG x 4 Status: Acute - Plan * Unstable angina * He is s/p 4 vessel CABG and hemodynamically stable * Continue post-op management as per CV- surgery
[2019-02-06] MEDS: HYDROcodone/Acetaminophen 5/325 mg Tablet PO PRN (20:10)
[2019-02-06 20:51] LABS: Hemoglobin 12.2 g/dL (14.0-18.0)
[2019-02-06 21:06] LABS: Potassium 4.5 mmol/L (3.5-5.1)
[2019-02-06] MEDS: Atorvastatin Calcium 20 MG TAB PO SCH (21:42)
[2019-02-07] MEDS: HYDROcodone/Acetaminophen 5/325 mg Tablet PO PRN ×5 (01:48→18:40)
[2019-02-07] MEDS: Fentanyl 100 MCG/2 ML VIAL SLOW IVP PRN (02:42)
[2019-02-07 05:04] LABS: Anion Gap 11 mmol/L (10-20); BUN (Urea Nitrogen) 13 mg/dL (8.4-25.7); Calc. Creatinine Clearance 96 mL/min (70-130); Calcium 7.7 mg/dL (7.8-10.44); Carbon Dioxide 21 mmol/L (23-31); Chloride 112 mmol/L (98-107); Estimated GFR-MDRD 86; Glucose 135 mg/dL (80-115); Potassium 4.4 mmol/L (3.5-5.1); Sodium 140 mmol/L (136-145)
[2019-02-07 05:07] LABS: #Monocytes 0.9 thou/uL (0.11-0.59); #Neutrophils 9.2 thou/uL (1.40-6.50); %Basophils 0.3 % (0.0-1.0); %Eosinophils 0.1 % (0.0-10.0); %Lymphocytes 9.3 % (21.0-51.0); %Monocytes 8.3 % (0.0-10.0); Hemoglobin 11.4 g/dL (14.0-18.0); Mean Corpuscular HGB CONC 33.8 g/dL (32.0-36.0); Mean Corpuscular Hemoglobin 32.4 pg (27.0-31.0); Mean Corpuscular Volume 95.7 fL (78.0-98.0); Mean Platelet Volume 8.5 fL (7.4-10.4); Platelet Count 153 thou/uL (130-400); Red Blood Cell (RBC) Count 3.53 mill/uL (4.70-6.10); White Blood Cell (WBC) Count 11.2 thou/uL (4.8-10.8)
[2019-02-07] MEDS: Insulin Regular 300 UNITS/3 ML VIAL SC PRN (05:21)
--- NOTE | 2019-02-07 08:04 | RAD ---
ONE VIEW CHEST: COMPARISON: 02/06/2019. HISTORY: Status post open heart surgery. FINDINGS: Stable sternotomy wires and left-sided central venous catheter. Mediastinal drainage catheters are r edemonstrated. Heart is enlarged and the pulmonary vessels are within normal limits. Bibasilar pleu ral and parenchymal changes. No pneumothorax. IMPRESSION: 1. Bibasilar pleural and parenchymal changes. 2. Findings compatible with recent open heart surgery. POS: NELSON
[2019-02-07] MEDS ORDERED: Mineral Oil ENEMA PR PRN (08:08)
[2019-02-07] MEDS ORDERED: diphenhydrAMINE 25 MG CAP PO PRN (08:08)
[2019-02-07] MEDS ORDERED: Bisacodyl 10 MG SUPP PR PRN (08:08)
[2019-02-07] MEDS ORDERED: Bisacodyl 5 MG TAB PO PRN (08:08)
[2019-02-07] MEDS ORDERED: Zolpidem Tartrate 5 MG TAB PO PRN (08:08)
[2019-02-07] MEDS ORDERED: Artificial Tears 18 DROP/0.9 ML EA EYE PRN (08:08)
[2019-02-07] MEDS ORDERED: Mag-Al 1200 mg/1200 mg/30 ML UDCUP PO PRN (08:08)
[2019-02-07] MEDS ORDERED: Nitroglycerin 0.4 MG TAB (25 Tab Bottle) SL PRN (08:08)
[2019-02-07] MEDS ORDERED: Furosemide 40 MG/4 ML VIAL SLOW IVP SCH (08:15)
--- NOTE | 2019-02-07 08:46 | PRG ---
DATE OF SERVICE: 02/07/2019 SUBJECTIVE: This morning, he is awake, alert, responsive, having a substernal chest pain from his surgery. OBJECTIVE: VITAL SIGNS: Saturations _96%on 3 L, blood pressure 130/80, . CHEST: No wheezing or crackles. CARDIAC: Normal S1 and S2. No gallops. ABDOMEN: Soft. LABORATORY DATA: His CBC is unremarkable. Lytes are normal. IMAGING STUDIES: His x-ray shows slight cephalization. ASSESSMENT: Status post coronary artery bypass graft, extubated upon arrival to the ICU, tobacco abuse. PLAN: The patient appears to be pulmonary kraft stable and can be transferred out of the ICU. Pulmonary Critical Care will follow at a distance. Job ID: [id number] MTDD
[2019-02-07] MEDS ORDERED: Aspirin 325 MG TAB PO SCH (09:00)
[2019-02-07] MEDS: Ketorolac Tromethamine 30 MG/ML VIAL IVP SCH ×3 (09:14→19:48)
[2019-02-07] MEDS: Metoprolol Tartrate 25 MG TAB PO SCH ×2 (09:16→19:56)
[2019-02-07] MEDS: Aspirin 325 mg Enteric Coated Tablet PO SCH (09:29)
--- NOTE | 2019-02-07 10:23 | PDOC.HOSPP ---
- Subjective Encounter Date: 02/07/19 Encounter Time: 10:20 Subjective: Mr. Talavera was seen today in follow-up of CAD post CABG. He tells me he is hurting all over. His arm, and chest, where he had surgery. - Objective Vital Signs & Weight: Vital Signs (12 hours) Temp BP Pulse Ox 02/07/19 08:00 94 L 02/07/19 07:00 99.0 F 02/07/19 04:00 98.5 F 115/80 02/07/19 00:00 99.0 F Weight Weight 177 lb 4.026 oz Most Recent Monitor Data Heart Rate from ECG 101 NIBP 120/88 NIBP BP-Mean 98 Respiration from ECG 21 SpO2 94 I&O: 02/06/19 02/07/19 02/08/19 06:59 06:59 06:59 Intake Total 1580 3333.2 480 Output Total 1035 120 Balance 1580 2298.2 360 Result Diagrams: 02/07/19 04:09 02/07/19 04:09 Additional Labs: Accuchecks 02/07/19 02/06/19 02/06/19 04:11 23:49 20:06 POC Glucose 138 H 138 H 149 H 02/06/19 02/06/19 02/06/19 18:36 14:52 14:18 POC Glucose 144 H 142 H 137 H 02/06/19 02/06/19 02/06/19 13:25 12:50 12:18 POC Glucose 125 H 153 H 176 H 02/06/19 02/06/19 02/06/19 11:59 11:42 10:57 POC Glucose 164 H 158 H 152 H 02/06/19 08:00 POC Glucose 112 H Hospitalist ROS - Medication Medications: Active Medications Generic Name Dose Route Start Last Admin Trade Name Freq PRN Reason Stop Dose Admin Hydrocodone Bitart/Acetaminophen 1 tab 02/06/19 14:32 02/07/19 05:36 [place] 5/325 PO 1 tab Q4H PRN Administration Moderate Pain (4-6) Hydrocodone Bitart/Acetaminophen 2 tab 02/06/19 14:32 02/07/19 09:15 [place] 5/325 PO 2 tab Q4H PRN Administration Severe Pain (7-10) Aspirin 325 mg 02/07/19 09:00 02/07/19 09:29 Ecotrin PO Not Given DAILY BETSY Atorvastatin Calcium 20 mg 02/06/19 21:00 02/06/19 21:42 Lipitor PO 20 mg HS BETSY Administration Ketorolac Tromethamine 15 mg 02/07/19 08:08 02/07/19 09:14 Toradol IVP 02/08/19 02:09 15 mg Q6H BETSY Administration Metoprolol Tartrate 12.5 mg 02/07/19 09:00 02/07/19 09:16 Lopressor PO 12.5 mg BID BETSY Administration Sodium Chloride 10 ml 02/06/19 21:00 02/07/19 09:29 Flush - Normal Saline IVF 10 ml Q12HR BETSY Administration - Exam Eye: PERRL, anicteric sclera Heart: RRR, no murmur, no gallops, normal peripheral pulses Heart - other findings: + rub, intermittent Respiratory: CTAB, no wheezes, no tachypnea (+ scattered rhonchi, decreased breath sounds at the bases) Gastrointestinal: soft, non-tender, non-distended, normal bowel sounds, no palpable masses, no hepatomegaly, no splenomegaly Extremities: no cyanosis, no clubbing, no edema Hosp A/P (1) Chest pain Code(s): R07.9 - CHEST PAIN, UNSPECIFIED Status: Acute (2) Tobacco abuse Code(s): Z72.0 - TOBACCO USE Status: Chronic (3) S/P CABG x 4 Status: Acute - Plan * Unstable angina * He is s/p 4 vessel CABG and he continues to be hemodynamically stable * Continue post-op management as per CV- surgery * I suspect he will be transferred out of the ICU * Symptom management
[2019-02-07] MEDS: Metoclopramide HCl 10 MG/2 ML VIAL IVP SCH ×3 (11:31→19:55)
--- NOTE | 2019-02-07 11:58 | PRG ---
DATE OF SERVICE: 02/07/2019 SUBJECTIVE: Mr. Talavera is currently doing better. He complains of incisional pain. He underwent 4-vessel bypass. OBJECTIVE: VITAL SIGNS: Blood pressure 137/85, pulse 95, temperature afebrile. LUNGS: Clear to auscultation. HEART: Regular rate and rhythm. ABDOMEN: Soft, nontender, and nondistended. EXTREMITIES: No edema. Telemetry monitoring shows sinus rhythm. IMPRESSION: 1. Coronary artery disease. 2. Status post bypass surgery. 3. Tobacco abuse. RECOMMENDATIONS: 1. Continue aspirin in addition to atorvastatin. 2. Continue metoprolol 12.5 mg p.o. b.i.d. and increase if needed. 3. Incentive spirometry and physical therapy. Job ID: [id number]
[2019-02-07] MEDS ORDERED: Furosemide 40 MG TAB PO SCH (14:00)
[2019-02-07] MEDS: Atorvastatin Calcium 20 MG TAB PO SCH (19:56)
[2019-02-07 22:24] LABS: Anion Gap 9 mmol/L (10-20); BUN (Urea Nitrogen) 22 mg/dL (8.4-25.7); Calc. Creatinine Clearance 67 mL/min (70-130); Calcium 7.9 mg/dL (7.8-10.44); Carbon Dioxide 24 mmol/L (23-31); Chloride 109 mmol/L (98-107); Estimated GFR-MDRD 55; Glucose 118 mg/dL (80-115); Sodium 138 mmol/L (136-145)
[2019-02-07] MEDS: Lactated Ringer's 1,000 ML IV SCH (22:55)
[2019-02-08] MEDS: HYDROcodone/Acetaminophen 5/325 mg Tablet PO PRN ×2 (02:05→09:16)
[2019-02-08] MEDS: Metoclopramide HCl 10 MG/2 ML VIAL IVP SCH (02:08)
[2019-02-08 04:57] LABS: #Eosinphils 0.1 thou/uL (0.0-0.7); #Lymphocytes 1.2 thou/uL (1.20-3.40); #Monocytes 0.9 thou/uL (0.11-0.59); #Neutrophils 8.5 thou/uL (1.40-6.50); %Basophils 0.4 % (0.0-1.0); %Lymphocytes 11.3 % (21.0-51.0); %Neutrophils 79.4 % (42.0-75.0); Hemoglobin 10.6 g/dL (14.0-18.0); Mean Corpuscular Hemoglobin 32.9 pg (27.0-31.0); Mean Corpuscular Volume 96.5 fL (78.0-98.0); Mean Platelet Volume 8.5 fL (7.4-10.4); Platelet Count 143 thou/uL (130-400); RBC Distribution Width 12.1 % (11.5-14.5); Red Blood Cell (RBC) Count 3.23 mill/uL (4.70-6.10); White Blood Cell (WBC) Count 10.7 thou/uL (4.8-10.8)
[2019-02-08 05:22] LABS: Anion Gap 8 mmol/L (10-20); BUN (Urea Nitrogen) 23 mg/dL (8.4-25.7); Calc. Creatinine Clearance 79 mL/min (70-130); Calcium 8.1 mg/dL (7.8-10.44); Carbon Dioxide 24 mmol/L (23-31); Chloride 109 mmol/L (98-107); Estimated GFR-MDRD 67; Glucose 116 mg/dL (80-115); Potassium 3.9 mmol/L (3.5-5.1); Sodium 137 mmol/L (136-145)
[2019-02-08 05:25] VITALS: BMI 23.4
--- NOTE | 2019-02-08 08:04 | RAD ---
Exam: Chest one view: HISTORY: Follow-up postop open heart COMPARISON: 02/07/2019 FINDINGS: Patchy alveolar parenchymal changes in the left perihilar region and both lung bases appear more prom inent than on the prior study. Left central line in place. Chest tubes in place. IMPRESSION: Somewhat worsening bilateral alveolar parenchymal changes including the bases and left perihilar and upper mid lung zone regions from prior study raising concern for the possibility of pneumonia or less likely asymmetric edema or partial atelectasis. Continued short-term follow-up. In Partial atele ctasis. Continued short-term follow-up.
[2019-02-08] MEDS ORDERED: Furosemide 40 MG TAB PO SCH (09:00)
[2019-02-08] MEDS: Cefepime 1 GM in Sodium Chloride 0.9% 100 ML IVPB SCH ×2 (09:53→20:46)
[2019-02-08] MEDS: Guaifenesin DM 100-10/5 ML UDCUP PO PRN (09:54)
[2019-02-08] MEDS: Acetaminophen 1,000 MG in Premix Bag 1 BAG IVPB SCH ×4 (10:24→21:45)
[2019-02-08] MEDS: Aspirin 325 mg Enteric Coated Tablet PO SCH (10:25)
[2019-02-08] MEDS: Metoprolol Tartrate 25 MG TAB PO SCH ×2 (10:26→20:45)
--- NOTE | 2019-02-08 12:56 | PRG ---
DATE OF SERVICE: 02/08/2019 SUBJECTIVE: Mr. Talavera has increased shortness of breath. His chest x-ray recently suggested pneumonia. He is postop day #1. He did have a 4-vessel bypass on 02/06/2019. PHYSICAL EXAMINATION: VITAL SIGNS: Blood pressure 108/76, pulse 98, and temperature afebrile. LUNGS: Decreased breath sounds noted bilaterally, left versus right. HEART: Regular rate and rhythm. ABDOMEN: Soft, nontender, and nondistended. EXTREMITIES: No edema. PERTINENT LABORATORY DATA: Hemoglobin 10.6. Creatinine 1.1. IMPRESSION: 1. Shortness of breath. 2. Coronary artery disease. 3. Status post bypass surgery. 4. ? chronic obstructive pulmonary disease. RECOMMENDATIONS: 1. The patient will be given Lasix IV. He does have a single kidney. 2. Encourage incentive spirometry. 3. We will leave the discretion of Dr. Tal Mast on pneumonia. The patient may need antibiotic therapy. I would certainly be too soon for pneumonia to be secondary to postoperative changes. 4. Hemoglobin appears stable. Job ID: [id number]
[2019-02-08] MEDS: Lactated Ringer's 1,000 ML IV SCH ×2 (13:58→20:56)
[2019-02-08] MEDS: HYDROmorphone 2 MG TAB PO PRN ×2 (14:24→18:54)
--- NOTE | 2019-02-08 15:06 | PDOC.HOSPP ---
- Subjective Encounter Date: 02/08/19 Encounter Time: 10:45 Subjective: Mr. Talavera was seen today in follow-up post CABG. He had an episode of severe dyspnea this morning. An X-ray of the chest was ordered by Dr. Mast and he was found to have a pulmonary infiltrate. He is feeling a bit better now, and he says the post-op pain is better controlled - Objective Vital Signs & Weight: Vital Signs (12 hours) Temp Pulse Pulse Pulse Resp BP BP 02/08/19 13:41 86 23 H 02/08/19 11:00 98.0 F 02/08/19 10:34 103 H 103 H 110/75 114/69 02/08/19 08:00 02/08/19 07:36 02/08/19 07:00 99.3 F 02/08/19 06:00 99.4 F 02/08/19 04:30 Pulse Ox Pulse Ox Pulse Ox 02/08/19 13:41 97 02/08/19 11:00 02/08/19 10:34 92 L 92 L 02/08/19 08:00 93 L 02/08/19 07:36 94 L 02/08/19 07:00 02/08/19 06:00 02/08/19 04:30 95 Weight Weight 173 lb 1.006 oz Most Recent Monitor Data Heart Rate from ECG 92 NIBP 101/67 NIBP BP-Mean 78 Respiration from ECG 28 SpO2 97 I&O: 02/07/19 02/08/19 02/09/19 06:59 06:59 06:59 Intake Total 3333.2 1650 750 Output Total 1035 1065 380 Balance 2298.2 585 370 Result Diagrams: 02/08/19 04:45 02/08/19 04:45 Hospitalist ROS - Medication Medications: Active Medications Generic Name Dose Route Start Last Admin Trade Name Freq PRN Reason Stop Dose Admin Albuterol/Ipratropium 3 ml 02/08/19 13:00 02/08/19 13:41 Duoneb NEB 3 ml [id number] BETSY Administration Aspirin 325 mg 02/07/19 09:00 02/08/19 10:25 Ecotrin PO 325 mg DAILY BETSY Administration Atorvastatin Calcium 20 mg 02/06/19 21:00 02/07/19 19:56 Lipitor PO 20 mg HS BETSY Administration Guaifenesin/Dextromethorphan 15 ml 02/07/19 08:08 02/08/19 09:54 Robitussin Dm PO 15 ml Q4H PRN Administration Cough Hydromorphone HCl 4 mg 02/08/19 09:38 02/08/19 14:24 Dilaudid PO 4 mg Q4H PRN Administration Moderate to Severe Pain (6-10) Lactated Ringer's 1,000 mls @ 100 mls/hr 02/07/19 22:45 02/08/19 13:58 Lactated Ringer's IV 1,000 mls .Q10H BETSY Administration Cefepime HCl 1 gm/ Sodium 100 mls @ 200 mls/hr 02/08/19 09:00 02/08/19 09:53 Chloride IVPB 100 mls Q12HR BETSY Administration Acetaminophen 1,000 mg/ Device 100 mls @ 400 mls/hr 02/08/19 10:00 02/08/19 13:09 IVPB 02/09/19 00:13 Not Given Q6HR BETSY Metoprolol Tartrate 12.5 mg 02/07/19 09:00 02/08/19 10:26 Lopressor PO 12.5 mg BID BETSY Administration Sodium Chloride 10 ml 02/06/19 21:00 02/08/19 10:27 Flush - Normal Saline IVF 10 ml Q12HR BETSY Administration - Exam Eye: PERRL, anicteric sclera Heart: RRR, no murmur, no gallops (+ intermittent rub), normal peripheral pulses Respiratory: CTAB, no wheezes (+ occasional rhonchi), normal chest expansion Gastrointestinal: soft, non-tender, non-distended, normal bowel sounds, no palpable masses, no hepatomegaly, no splenomegaly, no bruit, no guarding Extremities: no cyanosis, no clubbing, no edema Psychiatric: normal affect, normal behavior, A&O x 3 Hosp A/P (1) Healthcare-associated pneumonia Code(s): J18.9 - PNEUMONIA, UNSPECIFIED ORGANISM Status: Acute (2) Tobacco abuse Code(s): Z72.0 - TOBACCO USE Status: Chronic (3) S/P CABG x 4 Status: Acute (4) Unstable angina Status: Acute - Plan * Unstable angina * He is s/p 4 vessel CABG and he continues to be hemodynamically stable * HAP- agree with the addition of Cefepime * Continue aspirin, beta-corie, and statin * Symptom management
--- NOTE | 2019-02-08 15:19 | RAD ---
Exam: Chest one view: HISTORY: Shortness of breath COMPARISON: 02/08/2019 FINDINGS: Persistent overall stable patchy alveolar and interstitial parenchymal changes in the left upper mid lung zone, left lower lobe, and right lower lobe regions unchanged from prior study. Other stable postoperative changes. IMPRESSION: Stable bilateral parenchymal changes.
[2019-02-08] MEDS: Sodium Chloride 0.9% 1,000 ML IV SCH (17:50)
[2019-02-08] MEDS: Atorvastatin Calcium 20 MG TAB PO SCH (20:44)
--- NOTE | 2019-02-08 23:14 | EKG ---
Test Reason : CABG Blood Pressure : / mmHG Vent. Rate : 078 BPM Atrial Rate : 078 BPM P-R Int : 144 ms QRS Dur : 124 ms QT Int : 426 ms P-R-T Axes : 061 040 025 degrees QTc Int : 485 ms Normal sinus rhythm Right bundle branch block Abnormal ECG When compared with ECG of 02-FEB-2019 13:18, (Unconfirmed) QT has lengthened Confirmed by Priyanka TRIMBLE ([id number]) on 02/08/2019 11:14:26 PM Referred By: SHELBIE Confirmed By:Priyanka TRIMBLE
[2019-02-09] MEDS: Acetaminophen 1,000 MG in Premix Bag 1 BAG IVPB SCH (04:47)
[2019-02-09] MEDS: Lactated Ringer's 1,000 ML IV SCH (04:47)
[2019-02-09] MEDS: Guaifenesin DM 100-10/5 ML UDCUP PO PRN (05:13)
[2019-02-09] MEDS: HYDROmorphone 2 MG TAB PO PRN ×2 (05:30→09:54)
[2019-02-09 06:17] LABS: #Eosinphils 0.1 thou/uL (0.0-0.7); #Lymphocytes 0.9 thou/uL (1.20-3.40); #Monocytes 0.7 thou/uL (0.11-0.59); #Neutrophils 9.1 thou/uL (1.40-6.50); %Basophils 0.1 % (0.0-1.0); %Eosinophils 0.9 % (0.0-10.0); %Lymphocytes 8.6 % (21.0-51.0); %Monocytes 6.8 % (0.0-10.0); %Neutrophils 83.7 % (42.0-75.0); Hemoglobin 10.2 g/dL (14.0-18.0); Mean Corpuscular HGB CONC 34.2 g/dL (32.0-36.0); Mean Corpuscular Hemoglobin 32.9 pg (27.0-31.0); Mean Corpuscular Volume 96.2 fL (78.0-98.0); Platelet Count 130 thou/uL (130-400); RBC Distribution Width 11.9 % (11.5-14.5); Red Blood Cell (RBC) Count 3.09 mill/uL (4.70-6.10); White Blood Cell (WBC) Count 10.9 thou/uL (4.8-10.8)
[2019-02-09 06:40] LABS: Anion Gap 11 mmol/L (10-20); BUN (Urea Nitrogen) 15 mg/dL (8.4-25.7); Calc. Creatinine Clearance 125 mL/min (70-130); Carbon Dioxide 21 mmol/L (23-31); Chloride 106 mmol/L (98-107); Estimated GFR-MDRD Greater than 90; Glucose 112 mg/dL (80-115); Potassium 3.9 mmol/L (3.5-5.1); Sodium 134 mmol/L (136-145)
[2019-02-09] MEDS: Aspirin 325 mg Enteric Coated Tablet PO SCH (08:02)
[2019-02-09] MEDS: Metoprolol Tartrate 25 MG TAB PO SCH ×2 (08:06→20:33)
[2019-02-09] MEDS: Cefepime 1 GM in Sodium Chloride 0.9% 100 ML IVPB SCH ×2 (08:06→20:33)
--- NOTE | 2019-02-09 09:42 | RAD ---
PORTABLE CHEST: Date: 02/09/19 HISTORY: Post CABG. COMPARISON: Prior day's study. FINDINGS: Left-sided subclavian line is present. Postop sternotomy changes are seen. The parenchymal changes in the left mid and lower lung esteves and right base are all stable. IMPRESSION: Stable exam. POS: TPC
--- NOTE | 2019-02-09 09:48 | PRG ---
DATE OF SERVICE: 02/09/2019 SUBJECTIVE: This morning, he is better. OBJECTIVE: VITAL SIGNS: His temperature 98, pulse 99, respirations 16, saturations on 1 L, blood pressure 96/61. relatively clear. LABORATORY DATA: His electrolytes are normal. White count 11,000. IMAGING STUDIES: X-ray still shows bilateral infiltrates, slightly more prominence to the left lung. IMPRESSION: 1. Coronary artery disease, status post coronary artery bypass graft. 2. Aspiration pneumonia. Continue Maxipime neb treatments. PT will follow. Job ID: [id number]
--- NOTE | 2019-02-09 11:04 | PDOC.HOSPP ---
- Subjective Encounter Date: 02/09/19 Encounter Time: 11:02 Subjective: Mr. Talavera was seen today in follow-up post CABG. He does not have any complaints. He has less chest pain and breathing has improved. - Objective Vital Signs & Weight: Vital Signs (12 hours) Temp Pulse Resp BP Pulse Ox 02/09/19 07:53 98.2 F 99 16 96/61 99 02/09/19 07:29 94 L 02/09/19 07:24 82 16 94 L 02/09/19 05:01 93 L 02/09/19 00:44 80 20 96 Weight Weight 198 lb 12.8 oz Most Recent Monitor Data Heart Rate from ECG 92 NIBP 93/52 NIBP BP-Mean 65 Respiration from ECG 14 SpO2 95 I&O: 02/08/19 02/09/19 02/10/19 06:59 06:59 06:59 Intake Total 1650 3121 Output Total 1065 1445 325 Balance 585 1676 -325 Result Diagrams: 02/09/19 05:11 02/09/19 05:11 Hospitalist ROS - Medication Medications: Active Medications Generic Name Dose Route Start Last Admin Trade Name Freq PRN Reason Stop Dose Admin Albuterol/Ipratropium 3 ml 02/08/19 13:00 02/09/19 07:24 Duoneb NEB 3 ml [id number] BETSY Administration Aspirin 325 mg 02/07/19 09:00 02/09/19 08:02 Ecotrin PO 325 mg DAILY BETSY Administration Atorvastatin Calcium 20 mg 02/06/19 21:00 02/08/19 20:44 Lipitor PO 20 mg HS BETSY Administration Guaifenesin/Dextromethorphan 15 ml 02/07/19 08:08 02/09/19 05:13 Robitussin Dm PO 15 ml Q4H PRN Administration Cough Hydromorphone HCl 4 mg 02/08/19 09:38 02/09/19 09:54 Dilaudid PO 4 mg Q4H PRN Administration Moderate to Severe Pain (6-10) Hydromorphone HCl 8 mg 02/08/19 09:39 02/09/19 05:30 Dilaudid PO 8 mg Q4H PRN Administration Severe Pain (7-10) Cefepime HCl 1 gm/ Sodium 100 mls @ 200 mls/hr 02/08/19 09:00 02/09/19 08:06 Chloride IVPB 100 mls Q12HR BETSY Administration Metoprolol Tartrate 12.5 mg 02/07/19 09:00 02/09/19 08:06 Lopressor PO 12.5 mg BID BETSY Administration Sodium Chloride 10 ml 02/06/19 21:00 02/09/19 08:04 Flush - Normal Saline IVF 10 ml Q12HR BETSY Administration - Exam Eye: PERRL, anicteric sclera Heart: RRR, no murmur, no gallops, normal peripheral pulses Respiratory: CTAB, no wheezes, no rales, no ronchi, normal chest expansion, no tachypnea, normal percussion Gastrointestinal: soft, non-tender, non-distended, normal bowel sounds, no palpable masses, no hepatomegaly, no splenomegaly Extremities: no cyanosis, no clubbing, no edema (incision sites are good, no induration no erythema) Hosp A/P (1) Healthcare-associated pneumonia Code(s): J18.9 - PNEUMONIA, UNSPECIFIED ORGANISM Status: Acute (2) Tobacco abuse Code(s): Z72.0 - TOBACCO USE Status: Chronic (3) S/P CABG x 4 Status: Acute (4) Unstable angina Status: Acute - Plan * Unstable angina * He is s/p 4 vessel CABG and he continues to be hemodynamically stable * Chest tubes were removed today * HAP- continue Cefepime * Continue aspirin, beta-corie, and statin * Symptom management * Continue to mobilize
--- NOTE | 2019-02-09 11:13 | PRG ---
DATE OF SERVICE: SUBJECTIVE: Mr. Talavera is doing better. His shortness of breath has improved. He continues to have a chest tube in place. OBJECTIVE: VITAL SIGNS: Blood pressure 96/61, pulse 99, temperature afebrile. LUNGS: Clear to auscultation. HEART: Regular rate and rhythm. ABDOMEN: Soft, nontender, and nondistended. EXTREMITIES: No edema. PERTINENT LABORATORY DATA: Hemoglobin 10.2, white blood cell count 10.9, platelet count 130. Creatinine 0.79. IMPRESSION: 1. Coronary artery disease. 2. Status post bypass surgery. 3. Tobacco abuse. RECOMMENDATIONS: 1. Continue aspirin, atorvastatin in addition to metoprolol. 2. Incentive spirometry and physical therapy. 3. Chest tube. Recommendations per Dr. Chun. Job ID: [id number]
[2019-02-09] MEDS: Atorvastatin Calcium 20 MG TAB PO SCH (20:33)
[2019-02-10 07:46] LABS: #Eosinphils 0.2 thou/uL (0.0-0.7); #Lymphocytes 1.1 thou/uL (1.20-3.40); #Monocytes 0.9 thou/uL (0.11-0.59); %Basophils 0.2 % (0.0-1.0); %Eosinophils 1.7 % (0.0-10.0); %Lymphocytes 10.7 % (21.0-51.0); %Monocytes 8.4 % (0.0-10.0); %Neutrophils 79.1 % (42.0-75.0); Hemoglobin 9.7 g/dL (14.0-18.0); Mean Corpuscular HGB CONC 33.8 g/dL (32.0-36.0); Mean Corpuscular Volume 94.7 fL (78.0-98.0); Mean Platelet Volume 8.2 fL (7.4-10.4); Platelet Count 164 thou/uL (130-400); RBC Distribution Width 11.6 % (11.5-14.5); Red Blood Cell (RBC) Count 3.03 mill/uL (4.70-6.10); White Blood Cell (WBC) Count 10.2 thou/uL (4.8-10.8)
[2019-02-10 08:07] LABS: Anion Gap 14 mmol/L (10-20); BUN (Urea Nitrogen) 14 mg/dL (8.4-25.7); Calc. Creatinine Clearance 116 mL/min (70-130); Calcium 8.2 mg/dL (7.8-10.44); Carbon Dioxide 21 mmol/L (23-31); Chloride 106 mmol/L (98-107); Estimated GFR-MDRD Greater than 90; Glucose 104 mg/dL (80-115); Sodium 137 mmol/L (136-145)
--- NOTE | 2019-02-10 08:32 | RAD ---
Chest one view HISTORY: Heart surgery. Follow-up. COMPARISON: 02/09/2019. FINDINGS: Cardiac silhouette is magnified and upper limits of normal. Pulmonary vasculature is engorg ed. Widespread patchy areas of parenchymal infiltrates have progressed slightly since the prior study and involve all lobes. Mediastinum is midline with postoperative changes. Left subclavian central venous catheter remains in place. No evidence of pneumothorax. IMPRESSION: Slight interval worsening in radiographic appearance of patchy bilateral infiltrates. Oth erwise stable postoperative appearance of the chest.
[2019-02-10] MEDS: Aspirin 325 mg Enteric Coated Tablet PO SCH (09:38)
[2019-02-10] MEDS: Metoprolol Tartrate 25 MG TAB PO SCH ×2 (09:38→20:21)
[2019-02-10] MEDS: Cefepime 1 GM in Sodium Chloride 0.9% 100 ML IVPB SCH ×2 (09:39→20:21)
[2019-02-10] MEDS: HYDROmorphone 2 MG TAB PO PRN (09:43)
--- NOTE | 2019-02-10 10:58 | PDOC.HOSPP ---
- Subjective Encounter Date: 02/10/19 Encounter Time: 10:56 Subjective: pt up in bed no complains - Objective Vital Signs & Weight: Vital Signs (12 hours) Temp Pulse Resp BP BP Pulse Ox 02/10/19 08:00 98.4 F 102 H 20 119/57 L 92 L 02/10/19 07:08 96 14 96 02/10/19 04:00 98.7 F 98 20 108/53 L 93 L 02/10/19 01:04 89 18 96 Weight Weight 193 lb 8 oz Most Recent Monitor Data Heart Rate from ECG 92 NIBP 93/52 NIBP BP-Mean 65 Respiration from ECG 14 SpO2 95 I&O: 02/09/19 02/10/19 02/11/19 06:59 06:59 06:59 Intake Total 3121 1380 Output Total 1445 1325 Balance 1676 55 Result Diagrams: 02/10/19 07:15 02/10/19 07:15 Hospitalist ROS - Review of Systems Cardiovascular: denies: chest pain, palpitations, orthopnea, paroxysmal noc. dyspnea, edema, light headedness, other Gastrointestinal: denies: nausea, vomiting, abdominal pain, diarrhea, constipation, melena, hematochezia, other Genitourinary: denies: dysuria, frequency, incontinence, hematuria, retention, other - Medication Medications: Active Medications Generic Name Dose Route Start Last Admin Trade Name Freq PRN Reason Stop Dose Admin Albuterol/Ipratropium 3 ml 02/08/19 13:00 02/10/19 07:08 Duoneb NEB 3 ml [id number] BETSY Administration Aspirin 325 mg 02/07/19 09:00 02/10/19 09:38 Ecotrin PO 325 mg DAILY BETSY Administration Atorvastatin Calcium 20 mg 02/06/19 21:00 02/09/19 20:33 Lipitor PO 20 mg HS BETSY Administration Guaifenesin/Dextromethorphan 15 ml 02/07/19 08:08 02/09/19 05:13 Robitussin Dm PO 15 ml Q4H PRN Administration Cough Hydromorphone HCl 4 mg 02/08/19 09:38 02/09/19 09:54 Dilaudid PO 4 mg Q4H PRN Administration Moderate to Severe Pain (6-10) Hydromorphone HCl 8 mg 02/08/19 09:39 02/10/19 09:43 Dilaudid PO 8 mg Q4H PRN Administration Severe Pain (7-10) Cefepime HCl 1 gm/ Sodium 100 mls @ 200 mls/hr 02/08/19 09:00 02/10/19 09:39 Chloride IVPB 100 mls Q12HR BETSY Administration Metoprolol Tartrate 12.5 mg 02/07/19 09:00 02/10/19 09:38 Lopressor PO 12.5 mg BID BETSY Administration Sodium Chloride 10 ml 02/06/19 21:00 02/10/19 09:42 Flush - Normal Saline IVF 10 ml Q12HR BETSY Administration - Exam Heart: negative: RRR, no murmur, no gallops, no rubs, normal peripheral pulses, irregular, diminshed peripheral pulses, murmur present, II/IV, III/IV Respiratory: negative: CTAB, no wheezes, no rales, no ronchi, normal chest expansion, no tachypnea, normal percussion, rales, rhonchi, tachypneic, wheezes Gastrointestinal: negative: soft, non-tender, non-distended, normal bowel sounds , no palpable masses, no hepatomegaly, no splenomegaly, no bruit, no guarding, no rigidity, tender to palpation, distended, diminished bowl sounds, voluntary guarding Hosp A/P (1) Chest pain Code(s): R07.9 - CHEST PAIN, UNSPECIFIED Status: Acute (2) S/P CABG x 4 Status: Acute (3) Unstable angina Status: Acute (4) Tobacco abuse Code(s): Z72.0 - TOBACCO USE Status: Chronic (5) Healthcare-associated pneumonia Code(s): J18.9 - PNEUMONIA, UNSPECIFIED ORGANISM Status: Acute - Plan pt up walking, will discharge when ok with Cv surgery. pt on asa/stain, will continue cefepime for now. encouraged pt to use IS.
[2019-02-10] MEDS ORDERED: Polyethylene Glycol 3350 17 GM Packet PO PRN (10:59)
[2019-02-10] MEDS ORDERED: Furosemide 40 MG TAB PO SCH (12:45)
--- NOTE | 2019-02-10 16:56 | PRG ---
DATE OF SERVICE: 02/10/2019 SUBJECTIVE: Mr. Talavera is doing well. He is up walking around. OBJECTIVE: VITAL SIGNS: Blood pressure 106/57, pulse 90. LUNGS: Clear. CARDIAC: Normal S1, normal S2. ASSESSMENT: Status post bypass surgery, doing well. Continue current medical regimen. Job ID: [id number] MTDD
--- NOTE | 2019-02-10 16:58 | PRG ---
DATE OF SERVICE: 02/10/2019 SERVICE: Pulmonary Medicine. INTERVAL HISTORY: The patient is doing okay from respiratory standpoint. Woke up this morning and he was a little bit short of breath. That being said, as the day progressed, that seemed to improve. He has been ambulating in the hallways with assistance. With this, he does have a little bit of dyspnea that limits his activity. Otherwise, he is returning to his usual state of health indicates over the last 2 days, he has made significant improvement. He has a minimal cough, but not bringing up any sputum at this point. Denies any overnight events like fevers or chills. He is not having any sweats. PHYSICAL EXAMINATION: VITAL SIGNS: Afebrile, pulse 97, blood pressure 106/57, respirations 18, and saturation 97% over 3 L nasal cannula. GENERAL: The patient is awake and alert, in no apparent distress. LUNGS: Good air entry. There is no prolonged expiratory phase. There are bibasilar crackles present. HEART: Normal rate and regular. ABDOMEN: Soft, nontender, and nondistended. Bowel sounds are positive. MUSCULOSKELETAL: No cyanosis or clubbing. There is trace pitting in the bilateral lower extremities. NEUROLOGIC: Grossly nonfocal. LABORATORY DATA: WBC 10.2, hemoglobin 9.7, and platelets 164,000. Basic metabolic profile is otherwise unremarkable. Magnesium 2.1. Respiratory culture is unremarkable to date. IMAGING STUDIES: Chest x-ray demonstrates bilateral fluffy infiltrates. He has pulmonary vascular congestion, as well as a subtle right-sided pleural effusion. ASSESSMENT: 1. Acute hypoxic respiratory failure. 2. Coronary artery disease, status post coronary artery bypass graft. 3. Community-acquired pneumonia secondary to aspiration. DISCUSSION AND PLAN: We will continue his antibiotics. At this point, he is a touch volume up. As such, we will continue diuresing him through time. We will continue his mobilization efforts. Pulmonary/Critical Care will continue to follow along for the time being. Job ID: [id number]
[2019-02-10] MEDS: Docusate 100 MG CAP PO SCH (20:21)
[2019-02-10] MEDS: Atorvastatin Calcium 20 MG TAB PO SCH (20:21)
--- NOTE | 2019-02-10 23:56 | EKG ---
Test Reason : Blood Pressure : / mmHG Vent. Rate : 065 BPM Atrial Rate : 065 BPM P-R Int : 144 ms QRS Dur : 132 ms QT Int : 414 ms P-R-T Axes : 021 -01 030 degrees QTc Int : 430 ms Normal sinus rhythm Right bundle branch block Abnormal ECG Confirmed by SHELDON REA, ADLE ([id number]), assistant production editor VINCE PRATER ([id number] on 02/10/2019 11:56:19 PM Referred By: Confirmed By:DALE CHUNG MD
[2019-02-11 06:18] LABS: #Eosinphils 0.4 thou/uL (0.0-0.7); #Lymphocytes 0.9 thou/uL (1.20-3.40); #Neutrophils 7.1 thou/uL (1.40-6.50); %Basophils 0.5 % (0.0-1.0); %Eosinophils 4.4 % (0.0-10.0); %Monocytes 10.4 % (0.0-10.0); %Neutrophils 75.7 % (42.0-75.0); Hemoglobin 9.5 g/dL (14.0-18.0); Mean Corpuscular HGB CONC 34.8 g/dL (32.0-36.0); Mean Corpuscular Hemoglobin 33.2 pg (27.0-31.0); Mean Corpuscular Volume 95.5 fL (78.0-98.0); Mean Platelet Volume 7.7 fL (7.4-10.4); Platelet Count 197 thou/uL (130-400); RBC Distribution Width 11.7 % (11.5-14.5); Red Blood Cell (RBC) Count 2.87 mill/uL (4.70-6.10); White Blood Cell (WBC) Count 9.4 thou/uL (4.8-10.8)
[2019-02-11 06:47] LABS: Anion Gap 13 mmol/L (10-20); BUN (Urea Nitrogen) 17 mg/dL (8.4-25.7); Calc. Creatinine Clearance 112 mL/min (70-130); Calcium 8.3 mg/dL (7.8-10.44); Carbon Dioxide 22 mmol/L (23-31); Chloride 104 mmol/L (98-107); Estimated GFR-MDRD Greater than 90; Glucose 109 mg/dL (80-115); Sodium 135 mmol/L (136-145)
[2019-02-11] MEDS: Potassium Chloride 10 MEQ TAB PO SCH (07:38)
[2019-02-11] MEDS: Furosemide 40 MG TAB PO SCH (07:39)
--- NOTE | 2019-02-11 08:26 | RAD ---
Chest one view HISTORY: Dyspnea. COMPARISON: 02/10/2019. FINDINGS: Cardiac silhouette is magnified by projection. Pulmonary vasculature slightly less engorged than on the prior study. Patchy areas of dense parenchymal infiltrate throughout each lung have improved slightly. Mediastinum is midline with postoperative changes. No evidence of pneumothorax. Le ft subclavian central venous catheter is again demonstrated. IMPRESSION: Slight interval radiographic improvement in appearance of bilateral infiltrates. No new a bnormalities.
[2019-02-11] MEDS: Cefepime 1 GM in Sodium Chloride 0.9% 100 ML IVPB SCH (08:29)
[2019-02-11] MEDS: Docusate 100 MG CAP PO SCH ×2 (08:32→20:41)
[2019-02-11] MEDS: Aspirin 325 mg Enteric Coated Tablet PO SCH (08:32)
[2019-02-11] MEDS: Metoprolol Tartrate 25 MG TAB PO SCH ×2 (09:47→20:41)
[2019-02-11] MEDS: Acetaminophen 325 MG TAB PO PRN ×2 (13:54→23:33)
--- NOTE | 2019-02-11 16:28 | PDOC.HOSPP ---
- Subjective Encounter Date: 02/11/19 Encounter Time: 11:00 Subjective: pt up in bed does not like breathing treatment. - Objective Vital Signs & Weight: Vital Signs (12 hours) Temp Pulse Resp BP BP BP Pulse Ox 02/11/19 15:01 98.2 F 84 30 H 91/53 L 92 L 02/11/19 13:59 99.4 F 93 26 H 101/58 L 96 02/11/19 12:05 100.0 F H 95 29 H 99/58 L 94 L 02/11/19 11:10 98.1 F 96 30 H 94/52 L 94 L 02/11/19 09:50 98.4 F 99 30 H 104/57 L 93 L 02/11/19 08:27 99.3 F 93 26 H 102/58 L 94 L 02/11/19 07:46 98 24 H 93 L 02/11/19 07:29 99.1 F 89 29 H 110/56 L 93 L Weight Weight 186 lb 12.8 oz Most Recent Monitor Data Heart Rate from ECG 92 NIBP 93/52 NIBP BP-Mean 65 Respiration from ECG 14 SpO2 95 I&O: 02/10/19 02/11/19 02/12/19 06:59 06:59 06:59 Intake Total 1380 1680 Output Total 1325 1575 Balance 55 105 Result Diagrams: 02/11/19 05:58 02/11/19 05:58 Hospitalist ROS - Review of Systems Cardiovascular: denies: chest pain, palpitations, orthopnea, paroxysmal noc. dyspnea, edema, light headedness, other Gastrointestinal: denies: nausea, vomiting, abdominal pain, diarrhea, constipation, melena, hematochezia, other Genitourinary: denies: dysuria, frequency, incontinence, hematuria, retention, other - Medication Medications: Active Medications Generic Name Dose Route Start Last Admin Trade Name Freq PRN Reason Stop Dose Admin Acetaminophen 650 mg 02/11/19 13:11 02/11/19 13:54 Tylenol PO 650 mg Q6H PRN Administration Mild Pain (1-3) Aspirin 325 mg 02/07/19 09:00 02/11/19 08:32 Ecotrin PO 325 mg DAILY BETSY Administration Atorvastatin Calcium 20 mg 02/06/19 21:00 02/10/19 20:21 Lipitor PO 20 mg HS BETSY Administration Docusate Sodium 100 mg 02/10/19 21:00 02/11/19 08:32 Colace PO 100 mg BID BETSY Administration Furosemide 40 mg 02/11/19 07:30 02/11/19 07:39 Lasix PO 40 mg DAILY-AC BETSY Administration Guaifenesin/Dextromethorphan 15 ml 02/07/19 08:08 02/09/19 05:13 Robitussin Dm PO 15 ml Q4H PRN Administration Cough Hydromorphone HCl 4 mg 02/08/19 09:38 02/09/19 09:54 Dilaudid PO 4 mg Q4H PRN Administration Moderate to Severe Pain (6-10) Hydromorphone HCl 8 mg 02/08/19 09:39 02/10/19 09:43 Dilaudid PO 8 mg Q4H PRN Administration Severe Pain (7-10) Cefepime HCl 1 gm/ Sodium 100 mls @ 200 mls/hr 02/08/19 09:00 02/11/19 08:29 Chloride IVPB 100 mls Q12HR BETSY Administration Polyethylene Glycol 17 gm 02/10/19 10:59 02/10/19 12:02 Miralax PO 17 gm DAILYPRN PRN Administration Constipation Potassium Chloride 10 meq 02/11/19 08:00 02/11/19 07:38 Klor-Con 10 PO 10 meq QAM-WM BETSY Administration Sodium Chloride 10 ml 02/06/19 21:00 02/11/19 09:47 Flush - Normal Saline IVF 10 ml Q12HR BETSY Administration - Exam Neck: negative: supple, symmetric, no JVD, no thyromegaly, no lymphadenopathy, no carotid bruit, JVD Heart: negative: RRR, no murmur, no gallops, no rubs, normal peripheral pulses, irregular, diminshed peripheral pulses, murmur present, II/IV, III/IV Respiratory: negative: CTAB, no wheezes, no rales, no ronchi, normal chest expansion, no tachypnea, normal percussion, rales, rhonchi, tachypneic, wheezes Gastrointestinal: negative: soft, non-tender, non-distended, normal bowel sounds , no palpable masses, no hepatomegaly, no splenomegaly, no bruit, no guarding, no rigidity, tender to palpation, distended, diminished bowl sounds, voluntary guarding Hosp A/P (1) Chest pain Code(s): R07.9 - CHEST PAIN, UNSPECIFIED Status: Acute (2) S/P CABG x 4 Status: Acute (3) Unstable angina Status: Acute (4) Tobacco abuse Code(s): Z72.0 - TOBACCO USE Status: Chronic (5) Healthcare-associated pneumonia Code(s): J18.9 - PNEUMONIA, UNSPECIFIED ORGANISM Status: Acute - Plan pt up walking, will discharge when ok with Cv surgery. pt on asa/stain, will continue cefepime for now. encouraged pt to use IS. 02/11 Nurse concern this am stating he was tachypenic. cxr appear to be improved compared to 02/10. He is on cefepime. His wbc have improved. will put holding parameters to his bp and diuretic meds. He is not on dvt ppx will start. will get CTA to rule out PE. pt encouraged to take deep breaths to start weaning off oxygen. He is not in pain. May consider broadening his abx but clinically he does not appear ill. i did speak with his and updated her too.
--- NOTE | 2019-02-11 16:42 | CT ---
CT arteriogram chest with IV contrast and 3-D imaging HISTORY: Dyspnea. Recent heart surgery. FINDINGS: There is good contrast opacification pulmonary arteries and thoracic aorta with normal bran miroslava of the great vessels at the aortic arch. Recent postoperative changes of the mediastinum with small residual left pneumothorax and pneumomedia stinum. Small amount of bilateral pleural fluid with significant atelectasis remaining at each posterior lung base. Hazy, groundglass predominantly central parenchymal opacity within each lung. rways are patent. No lobar consolidation. IMPRESSION: No CT evidence of pulmonary embolus. Recent postoperative changes mediastinum with small residual left pneumothorax, bilateral pleural flu id, and significant remaining bibasilar dependent atelectasis. The patchy widespread bilateral areas of groundglass parenchymal infiltrate are nonspecific. Cause fo r the multifocal widespread pneumonitis is not evident.
--- NOTE | 2019-02-11 18:51 | PRG ---
DATE OF SERVICE: 02/11/2019 SERVICE: Pulmonary medicine. INTERVAL HISTORY: The patient is doing fine from respiratory standpoint. Denies any current chest discomfort, nausea, or vomiting. This morning, when he woke up he was quite short of breath. That being said, he got a dose of Lasix and as the day progressed, his breathing improved. He is able to walk without oxygen. He indicates that he had minimal dyspnea with that activity. PHYSICAL EXAMINATION: VITAL SIGNS: Afebrile, pulse 84, blood pressure 111/61, respirations 22, saturation 95% on 2 L nasal cannula. GENERAL: The patient is awake and alert, in no apparent distress. LUNGS: Good air entry. Dependent crackles have improved slightly, but are still present. No prolonged expiratory phase or wheezing is appreciated. HEART: Normal rate and regular. ABDOMEN: Soft, nontender, nondistended. Bowel sounds are positive. MUSCULOSKELETAL: No cyanosis or clubbing. No pitting in the bilateral lower extremities. NEUROLOGIC: Grossly nonfocal. LABORATORY DATA: Hemoglobin 9.5. Otherwise, CBC is unremarkable/stable. Sodium 135. Basic metabolic profile is unremarkable. Bicarb 22. Respiratory culture is negative. IMAGING: CTA of the chest demonstrates minuscule pneumothorax. There is ground-glass opacification centrally located sparing the periphery of the lung. It is little worse on the left compared to the right. In addition to this, he has bilateral pleural effusions. There is bibasilar infiltrates present. There is near complete atelectasis of the right lower lobe, and majority of the left lower lobe. Infiltrate cannot be excluded. ASSESSMENT: 1. Acute hypoxic respiratory failure. 2. Coronary artery disease, status post coronary artery bypass graft. 3. Community-acquired pneumonia secondary to aspiration. DISCUSSION AND PLAN: We will continue to diurese the patient to euvolemia as he remains at touch volume up. He is getting a daily dose of Lasix, which is perfectly reasonable. I will switch over his antibiotic from cefepime to Augmentin and complete a 7 day course. I will continue to wean away the oxygen as tolerated. Once he is back on room air, he will be a candidate for discharge from the hospital. Pulmonary/Critical Care will continue to follow along while the patient remains inhouse. Job ID: [id number]
[2019-02-11] MEDS: Atorvastatin Calcium 20 MG TAB PO SCH (20:42)
[2019-02-11] MEDS: Amoxicillin/Potassium Clav 875 MG TAB PO SCH (20:42)
[2019-02-11] MEDS ORDERED: Enoxaparin Sodium 40 MG/0.4 ML SYRINGE SC SCH (21:00)
[2019-02-12 05:13] LABS: #Eosinphils 0.6 thou/uL (0.0-0.7); #Monocytes 0.7 thou/uL (0.11-0.59); #Neutrophils 5.5 thou/uL (1.40-6.50); %Basophils 0.5 % (0.0-1.0); %Eosinophils 7.7 % (0.0-10.0); %Lymphocytes 12.8 % (21.0-51.0); %Monocytes 9.2 % (0.0-10.0); %Neutrophils 69.8 % (42.0-75.0); Hemoglobin 10.7 g/dL (14.0-18.0); Mean Corpuscular HGB CONC 34.2 g/dL (32.0-36.0); Mean Corpuscular Volume 93.6 fL (78.0-98.0); Mean Platelet Volume 7.8 fL (7.4-10.4); Platelet Count 269 thou/uL (130-400); RBC Distribution Width 11.7 % (11.5-14.5); Red Blood Cell (RBC) Count 3.33 mill/uL (4.70-6.10); White Blood Cell (WBC) Count 7.9 thou/uL (4.8-10.8)
[2019-02-12] MEDS: HYDROmorphone 2 MG TAB PO PRN (05:17)
[2019-02-12 05:29] LABS: Anion Gap 12 mmol/L (10-20); BUN (Urea Nitrogen) 19 mg/dL (8.4-25.7); Calc. Creatinine Clearance 104 mL/min (70-130); Calcium 8.7 mg/dL (7.8-10.44); Carbon Dioxide 23 mmol/L (23-31); Chloride 105 mmol/L (98-107); Estimated GFR-MDRD 90; Glucose 105 mg/dL (80-115); Potassium 3.8 mmol/L (3.5-5.1); Sodium 136 mmol/L (136-145)
--- NOTE | 2019-02-12 09:59 | PRG ---
DATE OF SERVICE: 02/12/2019 SUBJECTIVE: Theodore Talavera had a CT done over the weekend for apparently shortness of breath. This morning, he is doing better. He is walking in the halls without getting markedly short of breath. Sputum is relatively clear. His chest x-ray shows bilateral ground-glass and bilateral pleural effusion consistent with CHF. OBJECTIVE: VITAL SIGNS: Saturations are 91% on room air, temperature 98, pulse 88, blood pressure 99/59. CHEST: Decreased breath sounds. No wheezing. CARDIAC: Normal S1 and S2. No gallops. IMPRESSION: 1. Status post coronary artery bypass grafting. 2. Pleural effusion. 3. Congestive heart failure. Pulmonary kraft, continue cardiac care. Nothing additional to offer. Job ID: [id number]
[2019-02-12] MEDS: Metoprolol Tartrate 25 MG TAB PO SCH (10:08)
[2019-02-12] MEDS: Potassium Chloride 10 MEQ TAB PO SCH (10:08)
[2019-02-12] MEDS: Amoxicillin/Potassium Clav 875 MG TAB PO SCH (10:08)
[2019-02-12] MEDS: Aspirin 325 mg Enteric Coated Tablet PO SCH (10:08)
[2019-02-12] MEDS: Docusate 100 MG CAP PO SCH (10:09)
[2019-02-12] MEDS: Furosemide 40 MG TAB PO SCH (10:09)
[2019-02-12 11:50] VITALS: TEMP 98.6
[2019-02-12 14:00] VITALS: BP 133/64
== END 2019-02-12 15:56 | disposition home or self-care (01) | DRG 233 ==
LOC: ERS 13:12 → OBSVTOIN 17:17 → 2SW 17:17 → CCU 02-06 07:01 → 2NO 02-08 17:20
PROVIDERS: ADMIT Internal Medicine; ATTEND Internal Medicine
PROC: B2111ZZ Fluoroscopy of Multiple Coronary Arteries using Low Osmolar Contrast (ICD-10-PCS; 2019-02-02)
PROC: B2151ZZ Fluoroscopy of Left Heart using Low Osmolar Contrast (ICD-10-PCS; 2019-02-02)
PROC: 4A023N7 Measurement of Cardiac Sampling and Pressure, Left Heart, Percutaneous Approach (ICD-10-PCS; 2019-02-02)
PROC: 02100Z9 Bypass Coronary Artery, One Artery from Left Internal Mammary, Open Approach (ICD-10-PCS; principal; 2019-02-06)
PROC: 02110AW Bypass Coronary Artery, Two Arteries from Aorta with Autologous Arterial Tissue, Open Approach (ICD-10-PCS; 2019-02-06)
PROC: 021009W Bypass Coronary Artery, One Artery from Aorta with Autologous Venous Tissue, Open Approach (ICD-10-PCS; 2019-02-06)
PROC: 06BQ3ZZ Excision of Left Saphenous Vein, Percutaneous Approach (ICD-10-PCS; 2019-02-06)
PROC: 06BP3ZZ Excision of Right Saphenous Vein, Percutaneous Approach (ICD-10-PCS; 2019-02-06)
PROC: 03BB3ZZ Excision of Right Radial Artery, Percutaneous Approach (ICD-10-PCS; 2019-02-06)
PROC: 5A1221Z Performance of Cardiac Output, Continuous (ICD-10-PCS; 2019-02-06)
DX: I25.110 Atherosclerotic heart disease of native coronary artery with unstable angina pectoris (principal); J69.0 Pneumonitis due to inhalation of food and vomit; J96.01 Acute respiratory failure with hypoxia; J93.9 Pneumothorax, unspecified; J90 Pleural effusion, not elsewhere classified; I50.9 Heart failure, unspecified; Z72.0 Tobacco use; Z90.49 Acquired absence of other specified parts of digestive tract; Z90.5 Acquired absence of kidney; Z71.6 Tobacco abuse counseling
CPT/HCPCS: 36415; 36416; 36430; 71045; 71275; 76942; 78452; 80048; 80053; 80061; 82805; 83690; 83735; 83880; 84443; 84484; 85025; 85379; 85610; 85730; 86850; 86900; 86901; 87070; 87205; 93005; 93010; 93017; 93458; 93798; 94150; 94640; A9500; C1760; C1769; J0131; J0690; J0692; J1642; J1644; J1650; J1815; J1885; J1940; J2001; J2150; J2250; J2270; J2440; J2704; J2720; J2765; J2785; J3010; J3370; J3475; J3480; J3490; J7620; P9045; Q9967; S0017; S0028